=== PATIENT | male | born 1985 | race Caucasian/White ===

== ENCOUNTER 2020-01-08 12:22 | Outpatient (CLI) | payer BC, SELFPAY ==
--- NOTE | ~2020-01-08 | CT_ITS ---
EXAMINATION: CT abdomen pelvis wo/w con DATE: 01/08/2020 13:08 INDICATION: Hydronephrosis. Right upper quadrant abdominal pain. TECHNIQUE: Computed tomography (CT) of the abdomen and pelvis was performed without intravenous contr ast. CT of the abdomen and pelvis was then performed with a total of 130 mL Omnipaque-350 intravenous contrast using a double-bolus technique for simultaneous opacification of the renal parenchyma and r enal collecting system. Automated exposure control and iterative reconstruction technique were employ ed. The dose-length product was 2579.14 mGy-cm. COMPARISON: None FINDINGS: Minimal atelectasis at the lingula and right middle lobe. Heart size is normal. No pericardial or ple ural effusion. Liver, gallbladder, spleen and adjacent splenule, pancreas and bilateral adrenal gland s are normal. Bowels including the appendix are normal. No free intraperitoneal gas or fluid. No path ologically enlarged abdominal or pelvic lymphadenopathy. The knees are normal and symmetric renal parenchymal enhancement. No urolithiasis, hydroureteronephro sis or perinephric/ureteral stranding. The bilateral renal collecting systems and ureters are opacifi ed in their entirety and demonstrate no urothelial irregularities or filling defects. Bilateral urete ral jets are visualized within the normal-appearing bladder. Bone island at the right pubic body. Mil d lower thoracic spondylosis. IMPRESSION: 1. Normal CT urogram with normal kidneys and ureters and no urolithiasis or hydronephrosis. Reviewed, dictated and finalized at location A. UNITY DIRECTOR IMPRESSION: 1. Normal CT urogram with normal kidneys and ureters and no urolithiasis or hyd ronephrosis.
[2020-01-08 12:52] LABS: Estimated Glomerular Filt Rate > 60
== END 2020-01-08 12:23 ==
PROVIDERS: PCP Physician Assistant; Visit Provider Physician Assistant
DX: N13.30 Unspecified hydronephrosis (principal)
CPT/HCPCS: 36415; 74178; Q9967

== ENCOUNTER 2023-04-12 12:16 | Outpatient (CLI) | payer BC, SELFPAY ==
[2023-04-12 13:57] LABS: CRP 1.4 mg/dL (<1.0)
[2023-04-12 14:00] LABS: Erythrocyte Sedimentation Rate 11 mm/hr (0-20)
== END 2023-04-12 12:17 | disposition home or self-care (01) ==
LOC: ANHLAB 12:17
PROVIDERS: PCP Physician Assistant; Visit Provider Nurse Practitioner
DX: R10.9 Unspecified abdominal pain (principal); K52.9 Noninfective gastroenteritis and colitis, unspecified; K92.1 Melena; K21.9 Gastro-esophageal reflux disease without esophagitis
CPT/HCPCS: 36415; 84443; 85652; 86140

== ENCOUNTER 2023-04-28 01:08 | Day surgery (SDC) | payer BC, SELFPAY ==
[2023-04-20 08:23] VITALS: BMI 35.6
--- NOTE | 2023-04-27 12:29 | P.PNAN_ITS ---
Anes - Initial Pre Proc Eval Procedure: Operation Date: 04/28/23 14:00 Proposed Procedures p Esophagogastroduodenoscopy & Colonoscopy - Tej Peck MD Date/Time: 04/27/23 12:29 Surgeon: Tej Peck MD Pre Op Diagnosis: other fecal abnormalities, abdominal pain, GERD, Patient Data Age: 37 Gender: M Height: 1.85 m Weight: 122.5 kg Allergies Allergy/AdvReac Type Severity Reaction Status Date / Time No Known Allergies Allergy Verified 04/28/23 13:11 Home Medications Medication Instructions Recorded Confirmed Type albuterol sulfate 90 mcg/actuation 1 puff inhalation Q4H PRN 04/12/23 04/20/23 History aerosol inhaler Shortness Of Breath amlodipine 5 mg tablet 5 mg PO DAILY 04/12/23 04/20/23 History atorvastatin 40 mg tablet (Lipitor) 40 mg PO DAILY 04/12/23 04/20/23 History colestipol 1 gram tablet 1 g PO BID #60 tabs 04/12/23 04/20/23 Rx escitalopram oxalate 10 mg tablet 10 mg PO DAILY 04/12/23 04/20/23 History (Lexapro) fluticasone propionate 44 1 inh inhalation ONCE 04/12/23 04/20/23 History mcg/actuation HFA aerosol inhaler losartan 100 mg tablet 100 mg PO DAILY 04/12/23 04/20/23 History omeprazole 40 mg capsule,delayed 40 mg PO DAILY 04/12/23 04/20/23 History release Patient hx anesthesia problems: none Family hx anesthesia problems: none Results Review: All pre-operative results and documents have been reviewed as part of the pre- operative evaluation. [facility] Past Medical History Medical History (Updated 04/27/23 @ 12:30 by Boogie Salgado DO) Abdominal pain Chronic diarrhea GERD (gastroesophageal reflux disease) Increased mucus in stool Melena Obesity Odynophagia PTSD (post-traumatic stress disorder) Tobacco use Wheezing on both sides of chest Surgical History Surgical History (Updated 04/12/23 @ 12:48 by Maddy Marinelli APRN) History of cholecystectomy Family History Family History (Updated 04/12/23 @ 11:50 by Tomeka Mccord MA) Father Hypertension Mother Hypertension Social History Social History (Updated 04/12/23 @ 11:51 by Tomeka Mccord MA) Smoking packs per day: 1 Smoking cigarettes per day: 20.0 Years smoked: 21 Smoking pack-years: 21.00 Smoking status: Current every day smoker Tobacco type: cigarettes and e-cigarettes/vaping Alcohol intake: never Substance use: never Substance use type: does not use Living arrangements: with family Occupation/Education: occupation Gender identity (if verbalized by the patient): Male Spiritual care concerns: No Anes - Eval Final PreProcedure Day of Procedure 04/27/23 12:29 Patient weight: obese Heart: regular rate and rhythm Lungs: clear to auscultation Airway: Mallampati scale class II Neurological: alert and oriented Last oral intake: >/= 8 hours ASA classification: III Emergent: no Anesthetic plan: proceed Anesthesia type and monitoring: general GIVS and standard monitoring Results Review: All pre-operative results and documents have been reviewed as part of the pre- operative evaluation. Informed Consent: The patient's anesthetic plan and its attendant risks and benefits were discussed with the patient/family/POA. Questions were solicited and answers provided to the satisfaction of the patient/family
--- NOTE | 2023-04-27 20:05 | PM.HPGS ---
History of Present Illness History of Present Illness Consent: Risks, benefits, and alternatives have been discussed and questions answered. Patient agrees to proceed with procedure. Chief complaint: other fecal abnormalities, abdominal pain, GERD, Narrative: Leo Monge is a 37 year old male who ?has a past medical history of cholecystectomy, GERD and hypertension.? He is a daily smoker.? He has gallbladder removed 2 years ago and since then he has been having 6-7 episodes of watery diarrhea per day not associated with any specific foods.? He states that for several years he has been having a dull constant abdominal discomfort above his umbilicus.? it is constant and more uncomfortable if he presses on the area. It is not affected by eating. This is not a correlated with eating or bowel habits.? He states he had melena a couple weeks ago and states that they were to tarry which has no resolved-denies Pepto or iron when this occurred.? He does also states since he had his gallbladder out he deals with a lot of nausea and vomits ileus 1 times per week typically in the morning hours prior to eating and states it is bile acid.? He has a chronic cough but does smoke.? He reports some painful swallowing his suprasternal notch and some dysphagia.? Has not tried any medications for the diarrhea.? Has been on omeprazole 40 mg for several years Review of Systems Review of Systems: All systems reviewed & are unremarkable except as noted in HPI and below PMFSH Past Medical History Medical History Abdominal pain Chronic diarrhea GERD (gastroesophageal reflux disease) Increased mucus in stool Melena Obesity Odynophagia PTSD (post-traumatic stress disorder) Tobacco use Wheezing on both sides of chest Surgical History Surgical History History of cholecystectomy Family History Family History Father Hypertension Mother Hypertension Social History Social History Smoking packs per day: 1 Smoking cigarettes per day: 20.0 Years smoked: 21 Smoking pack-years: 21.00 Smoking status: Current every day smoker Tobacco type: cigarettes and e-cigarettes/vaping Alcohol intake: never Substance use: never Substance use type: does not use Living arrangements: with family Occupation/Education: occupation Gender identity (if verbalized by the patient): Male Spiritual care concerns: No Meds Home Medications and Allergies Home Medications Medication Instructions Recorded Confirmed Type albuterol sulfate 90 mcg/actuation 1 puff inhalation Q4H PRN 04/12/23 04/20/23 History aerosol inhaler Shortness Of Breath amlodipine 5 mg tablet 5 mg PO DAILY 04/12/23 04/20/23 History atorvastatin 40 mg tablet (Lipitor) 40 mg PO DAILY 04/12/23 04/20/23 History colestipol 1 gram tablet 1 g PO BID #60 tabs 04/12/23 04/20/23 Rx escitalopram oxalate 10 mg tablet 10 mg PO DAILY 04/12/23 04/20/23 History (Lexapro) fluticasone propionate 44 1 inh inhalation ONCE 04/12/23 04/20/23 History mcg/actuation HFA aerosol inhaler losartan 100 mg tablet 100 mg PO DAILY 04/12/23 04/20/23 History omeprazole 40 mg capsule,delayed 40 mg PO DAILY 04/12/23 04/20/23 History release Allergies Allergy/AdvReac Type Severity Reaction Status Date / Time No Known Allergies Allergy Verified 04/28/23 13:11 Exam Const: General: alert Orientation/consciousness: patient oriented x3 Resp: Auscultation: clear to auscultation bilaterally Cardio: Rhythm: regular rhythm GI: GI Palp: Yes Soft to palpation and No Tenderness to palpation present (GI) Neuro: General: patient oriented x3 Assessment and Plan Assessment and plan (1) Abdominal pain: Code(s): R10.9 - Unspecified abdominal pain Status: Acute
[2023-04-28 13:13] VITALS: BP 158/101; PULSE 80; RESP 20; TEMP 36.6; O2SAT 97; BMI 35.4
[2023-04-28] MEDS: LACTATED RINGERS 1,000 ML 150 ML IV CONT (13:21)
--- NOTE | 2023-04-28 13:50 | SUR.OPER ---
EGD start 1355 end 1359, Colonoscopy start 1403
[2023-04-28 14:20] VITALS: BP 112/67; PULSE 64; RESP 15; O2SAT 95
[2023-04-28 14:30] VITALS: BP 122/75; PULSE 62; RESP 16; O2SAT 94
[2023-04-28 14:40] VITALS: BP 142/88; PULSE 53; RESP 15; O2SAT 96
[2023-04-28 14:50] VITALS: BP 140/75; PULSE 70; RESP 16; O2SAT 100
== END 2023-04-28 15:08 | disposition home or self-care (01) ==
PROVIDERS: PCP Physician Assistant; Visit Provider Internal Medicine Gastroenterology
PROC: 0DJ08ZZ Inspection of Upper Intestinal Tract, Via Natural or Artificial Opening Endoscopic (ICD-10-PCS; CPT 43235; principal; 2023-04-28 14:00)
DX: R19.5 Other fecal abnormalities (principal); R10.9 Unspecified abdominal pain; K52.9 Noninfective gastroenteritis and colitis, unspecified; K21.9 Gastro-esophageal reflux disease without esophagitis; F17.210 Nicotine dependence, cigarettes, uncomplicated; F17.290 Nicotine dependence, other tobacco product, uncomplicated
CPT/HCPCS: 45378; 87081; 88305; J2704; J7120

== ENCOUNTER 2023-07-07 07:30 | Outpatient (CLI) | payer BC, SELFPAY ==
--- NOTE | ~2023-07-07 | NM_ITS ---
EXAM: NM gastric emptying study DATE: 07/07/2023 12:10 INDICATION: Epigastric pain, nausea and vomiting, early satiety TECHNIQUE: A gastric emptying study was performed using the methodology of Addison LUGO, et al. J Nucl Med 2007; 48:568-572. The patient was given a meal consisting of 2 scrambled eggs labeled with 1.029 mCi Tc-99m sulfur colloid, 2 slices of toast, two packages of jam, and approximately 120 mL of water . Simultaneous anterior and posterior 1-min images of the abdomen were obtained with the patient supi ne at multiple time points over a total period of 4 hours. The geometric mean of anterior and posteri or views was determined, and the percentage retention was calculated for each time point. COMPARISON: None. FINDINGS: Gastric retention of the radiotracer-labeled meal was 46%, 26%, and 5% at the 1-hour, 2-hour, and 4-h our time points, respectively. With this technique, apparent rapid gastric emptying is suggested by < 30% gastric retention at 1 hour. Delayed gastric emptying is defined by gastric retention of >90% at 1 hour, >60% retention at 2 hours, or >10% retention at 4 hours. IMPRESSION: 1. Normal gastric emptying. Reviewed, dictated and finalized at location A. IMPRESSION: 1. Normal gastric emptying.
== END 2023-07-07 07:31 | disposition home or self-care (01) ==
LOC: ANHIMG 07:33
PROVIDERS: PCP Physician Assistant; Visit Provider Nurse Practitioner
DX: R63.0 Anorexia (principal); R68.81 Early satiety; R11.2 Nausea with vomiting, unspecified; K21.9 Gastro-esophageal reflux disease without esophagitis; R10.9 Unspecified abdominal pain
CPT/HCPCS: 78264; A9541

== ENCOUNTER 2024-04-22 09:28 | Emergency (ER) | payer SELFPAY ==
--- NOTE | ~2024-04-22 | XR_ITS ---
EXAMINATION: XR wrist LT min 3V DATE: 04/22/2024 09:56 INDICATION: Left wrist pain and swelling. TECHNIQUE: 4 views of left wrist were obtained. COMPARISON: None. FINDINGS: Bone alignment is normal. No fracture. Joint spaces are normal. IMPRESSION: 1. Normal left wrist. Reviewed, dictated and finalized at location E. IMPRESSION: 1. Normal left wrist.
[2024-04-22 09:31] VITALS: BP 172/112; PULSE 92; RESP 18; TEMP 36.6; O2SAT 98
--- NOTE | 2024-04-22 09:38 | ED.UPPEXIN ---
HPI - Extremity Injury (Upper) General Chief Complaint: Extremity Injury, Upper Stated Complaint: left wrist pain , no injury Time Seen by Provider: 04/22/24 09:31 Source: patient Mode of arrival: ambulatory Limitations: no limitations History of Present Illness HPI narrative: Patient is a 38-year-old male who presents the ED with report of left wrist pain. Patient reports having pain for the last 3 weeks to 1 month. Denies any known injury. Does work with his hands frequently. Complains of pain around his wrist, shooting up his forearm. 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 Has not tried anything for pain. Denies numbness or tingling, swelling. Related Data Home Medications Medication Instructions Recorded Confirmed albuterol sulfate 90 mcg/actuation 1 puff inhalation Q4H PRN 04/12/23 04/20/23 aerosol inhaler Shortness Of Breath amlodipine 5 mg tablet 5 mg PO DAILY 04/12/23 04/20/23 atorvastatin 40 mg tablet (Lipitor) 40 mg PO DAILY 04/12/23 04/20/23 escitalopram oxalate 10 mg tablet 10 mg PO DAILY 04/12/23 04/20/23 (Lexapro) fluticasone propionate 44 1 inh inhalation ONCE 04/12/23 04/20/23 mcg/actuation HFA aerosol inhaler losartan 100 mg tablet 100 mg PO DAILY 04/12/23 04/20/23 omeprazole 40 mg capsule,delayed 40 mg PO DAILY 04/12/23 04/20/23 release Allergies Allergy/AdvReac Type Severity Reaction Status Date / Time No Known Allergies Allergy Verified 04/22/24 09:55 Review of Systems Review of Systems: CONSTITUTIONAL: Denies fever, chills, or sweats. MUSCULOSKELETAL: See HPI. NEUROLOGIC: Denies headache, dizziness, numbness, or weakness. All systems reviewed & are unremarkable except as noted in HPI and below PMFSH Past Medical History Medical History Abdominal pain Chronic diarrhea Decreased appetite Early satiety GERD (gastroesophageal reflux disease) Increased mucus in stool Melena Nausea & vomiting Obesity Odynophagia PTSD (post-traumatic stress disorder) Tobacco use Wheezing on both sides of chest Surgical History Surgical History History of cholecystectomy Family History Family History Father Hypertension Mother Hypertension Social History Social History Smoking packs per day: 1 Smoking cigarettes per day: 20.0 Years smoked: 21 Smoking pack-years: 21.00 Smoking status: Current every day smoker Tobacco type: cigarettes and e-cigarettes/vaping Alcohol intake: never Substance use: never Substance use type: does not use Living arrangements: with family Occupation/Education: occupation Gender identity (if verbalized by the patient): Male Spiritual care concerns: No Exam Narrative: GENERAL: Well appearing, obese with BMI of 35.5, non-toxic, in no acute distress. HEAD: Normocephalic, atraumatic. RESPIRATORY: Airway patent, respirations nonlabored. CARDIOVASCULAR: Regular rate and rhythm without murmurs, rubs, or gallops. Radial pulses strong and intact bilaterally. MUSCULOSKELETAL: Moves all extremities. No gross deformities. Mild limited range of motion of left wrist. Tenderness over distal ulna region on the volar aspect of left wrist. Positive carpal compression testing with reproduction of pain. Positive Tinel's with reproduction of pain. Sensation intact throughout fingers and forearm. Capillary refill intact. SKIN: Warm, dry, normal color. NEURO: A&O X3. Speech clear. PSYCHIATRIC: Appropriate mood and affect. Normal interaction. Course Vital Signs Vital signs: Vital Signs Temperature 97.8 F 04/22/24 09:31 Pulse Rate 92 04/22/24 09:31 Respiratory Rate 18 04/22/24 09:31 Blood Pressure 172/112 H 04/22/24 09:31 Pulse Oximetry 98 04/22/24 09:31
[2024-04-22] MEDS: KETOROLAC (*BKC) 60 MG/2 ML VIAL IM (09:56)
[2024-04-22 10:11] VITALS: BP 175/106; PULSE 81; RESP 18; O2SAT 97
== END 2024-04-22 10:12 | disposition home or self-care (01) ==
LOC: ANHED 10:08
PROVIDERS: Emergency Provider Physician Assistant; PCP Physician Assistant
DX: M25.532 Pain in left wrist (principal); F17.210 Nicotine dependence, cigarettes, uncomplicated; K21.9 Gastro-esophageal reflux disease without esophagitis; F43.10 Post-traumatic stress disorder, unspecified
CPT/HCPCS: 73110; 96372; 99283; J1885

== ENCOUNTER 2025-05-19 14:22 | Emergency (ER) | payer OTHER, SELFPAY ==
[2025-05-19 14:23] VITALS: BP 187/127; PULSE 92; RESP 20; TEMP 36.6; O2SAT 96
--- OUTSIDE RECORDS SUMMARY | 2025-05-19 14:28 | XMS_ITS | Encounter Summary ---
Author Organization [facility] - [facility] Address [address] [place] [address] Care Team Providers Care Tugboat Dispatcher Name Role Phone Mari English NP Primary Care Provider + [phone] Encounter Details Date Type Department Care Team (Late st Contact Info) Description 05/03/2023 The [employer] Message Enc [facility] - [facility] [address] [place], [place] [id number] Charlee, [facility] Provider Air Quality Message Social History Tobacco Use Types Packs/Day Years Used Date Smoking Tobacco: Every Day Cigarettes 1.5 22 Smokeless Tobacco: Former Chew Comments:Wants to quit. 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 Alcohol Use Standard Drinks/Week Comments Yes 0 (1 standard drink = 0.6 oz pur e alcohol) rare use- beer on occasion AUDIT-C Answer Date Recorded Frequency of Alcohol Consumption Never 04/22/2019 Average Number of Drinks Not on file 019 Frequency of Binge Drinking Not on file 04/06 PHQ-2 Answer Date Recorded Patient Health Questionnaire-2 Score 4 03/15/2023 Education Answer Date Recorded What is the highest level of school you have completed or the highest degree you have received? High school graduate 12/10/2019 Sex and Gender Information Value Date Recorded Sex Assigned at Male 01/20/2020 2:12 PM CDT Legal Sex Male 7:09 PM CDT Gender Identity Male 01/20/2020 2:12 PM CDT Sexual Orientation Straight 01/20/2020 2: 12 PM CDT documented as of this encounter Plan of Treatment Not on file documented as of this encounter Visit Diagnoses Not on filedocumented in this encounter Additional Health Concerns Assessment Noted Time PHQ-9 Depression Total Score: 14 023 9:47 AM CDT documented as of this encounter Care Teams Tugboat Dispatcher Relationship Specialty [place] [address] [address] [id number] PCP - General Nurse Practitioner Family 03/21/23 documented as of this encounter
--- OUTSIDE RECORDS SUMMARY | 2025-05-19 14:29 | XMS_ITS | Encounter Summary ---
Author Organization [facility] Address [facility] [place] [address] Care Team Providers Care News Production Supervisor Name Role Phone Kecia GoodwinNP Primary Care Provider [phone] Mari English NP Primary Care Provider + [phone] Encounter Details Date Type Department Care Team (Late st Contact Info) Description 06/07/2022 [place] Message [facility] Family & Internal Medicine [address] [id number] [employer], [facility] Provider Lab results Social History Tobacco Use Types Packs/Day Years Used Date Smoking Tobacco: Every Day Cigarettes 1.5 22 Smokeless Tobacco: Former Chew Comments:advised to stop Alcohol Use Standard Drinks/Week Comments Yes 0 (1 standard drink = 0.6 oz pur e alcohol) rare use- beer on occasion AUDIT-C Answer Date Recorded Frequency of Alcohol Consumption Never 04/22/2019 Average Number of Drinks Not on file 019 Frequency of Binge Drinking Not on file 04/06 PHQ-2 Answer Date Recorded PHQ-2 Score - If the patient scores above 3, please move on to questions 3-9 4 01/20/2022 Education Answer Date Recorded What is the highest level of school you have completed or the highest degree you have received? High school graduate 12/10/2019 Sex and Gender Information Value Date Recorded Sex Assigned at Male 01/20/2020 2:12 PM CDT Legal Sex Male 7:09 PM CDT Gender Identity Male 01/20/2020 2:12 PM CDT Sexual Orientation Straight 01/20/2020 2: 12 PM CDT COVID-19 Exposure Response Date Recorded In the last 10 days, have scott u been in contact with someone who was confirmed or suspected to have Coronavirus/COVID-19? No / Unsure 06/06/2022 9:19 AM CDT documented as of this encounter Plan of Treatment Not on file documented as of this encounter Visit Diagnoses Not on filedocumented in this encounter Additional Health Concerns Assessment Noted Time PHQ-9 Depression Total Score: 13 022 10:18 AM CDT documented as of this encounter Care Teams News Production Supervisor Relationship Specialty Start Date End Date Kecia Goodwin APNP [id number] [phone] PCP - General Nurse Practitioner Family [birth year]03/06 [place] [address] [facility] [address] [facility] [place] [address] PCP - General Nurse Practitioner Family 03/21/23 documented as of this encounter
--- OUTSIDE RECORDS SUMMARY | 2025-05-19 14:29 | XMS_ITS | Clinical Summary ---
Author Organization [facility] Address [address] [place] [address] Care Team Providers Care Carbon Printer Name Role Phone Mari English NP Primary Care Provider + [phone] Allergies No known active allergies Medications Eluxadoline (VIBERZI) 75 MG TabIndications:Ir ritable bowel syndrome with diarrhea Take 1 tablet by mouth every morning. 30 tablet 2 3 Active escitalopram (LEXAPRO) 10 MG tabletIndications :Anxiety and depression Take 1 tablet (10 mg total) by mouth daily. 90 tablet 3 3 Active atorvastatin (LIPITOR) 40 MG tabletIndications :Hypercholesterem ia Take 1 tablet (40 mg total) by mouth nightly at bedtime. 90 tablet 3 3 Active albuterol sulfate HFA 108 (90 Base) MCG/ACT inhalerIndication s:Mild intermittent asthma without complication (HHS/HCC) Inhale 1 puff into the lungs every 6 (six) hours as needed for Wheezing. 25.5 g 5 3 Active fluticasone propionate (FLOVENT HFA) 44 MCG/ACT inhalerIndication s:Mild intermittent asthma without complication (HHS/HCC) Inhale 1 puff into the lungs 2 (two) times daily. 10.6 g 5 3 Active losartan (COZAAR) 100 MG tabletIndications :Essential hypertension Take 1 tablet (100 mg total) by mouth daily. 90 tablet 3 3 Active omeprazole (PRILOSEC) 40 MG capsuleIndication s:Gastroesophagea l reflux disease without esophagitis Take 1 capsule (40 mg total) by mouth daily. 15 capsule 3 Active amLODIPine (NORVASC) 5 MG tabletIndications :Essential hypertension Take 1 tablet (5 mg total) by mouth nightly. 30 tablet 3 Active Active Problems Problem Noted Date Diagnosed Date Mild intermittent asthma without complication (H HS/HCC) 03/23/2023 Vitamin D deficiency 03/23/2023 Chronic diarrhea 03/23/2023 Irritable bowel syndrome with diarrhea 3 Moderate anxiety 03/15/2023 Moderate major depression 03/15/2023 Obesity (BMI 30-39.9) 03/15/2023 Cigarette nicotine dependenc e with other nicotine-induced disorder 03/15/2023 Anxiety and depression 06/08/2021 Status post laparoscopic cholecystectomy 020 Symptomatic cholelithiasis 01/10/2020 Heartburn 01/10/2020 Gastroesophageal reflux disease without esophagi tis 01/10/2020 Right upper quadrant abdominal pain 01/10/2020 Nausea and vomiting, intract ability of vomiting not specified, unspecified vomiting type 01/10/2020 Diarrhea, unspecified type 01/10/2020 Hypercholesteremia 05/07/2019 Essential hypertension 04/22/2019 Wheezing 04/22/2019 Current every day smoker 04/22/2019 Loud snoring 04/22/2019 Resolved Problems Problem Noted Date Diagnosed Date Resolved Date Encounter for [facility] examination in adult 04/22/2019 07/17/2020 Immunizations Immunization Administration Dates Next Due COVID-19 Vaccine (Generic) 06/03/2022(Deferred: Patient Refused) Influenza (Generic) 01/20/2022(Deferred: Patient Refused),08/18/2020 Tdap (Generic) 12/02/2013 Family History Medical History Relation Comments motor vehicle accident Father drinking and driving Heart Disease Mother Relation Status Comments Father Mother Social History Tobacco Use Types Packs/Day Years Used Date Smoking Tobacco: Every Day Cigarettes 1.5 22 Smokeless Tobacco: Former Chew Tobacco Cessation:Ready to Q uit: Not Asked; Counseling Given: Yes Comments:Wants to quit. Please children counselor. Alcohol Use Standard Drinks/Week Comments Yes [...] Orientation Straight 01/20/2020 2: 12 PM CDT Last Filed Vital Signs Vital Sign Reading Time Taken Comments Blood Pressure 139/89 05/31/2023 12:31 PM CDT Pulse 69 05/31/2023 12:31 PM CDT Temperature 36.7 C (98 F) 05/31/2023 12:31 PM CDT Respiratory Rate 18 05/31/2023 12:31 PM CDT Oxygen Saturation 97% 05/31/2023 12:31 PM CDT Inhaled Oxygen Concentration - - Weight 127 kg (280 lb) 05/31/2023 9:22 AM CDT Height 185.4 cm (6' 1) 05/31/2023 9:22 AM CDT Body Mass Index 36.94 05/31/2023 9:22 AM CDT Plan of Treatment Health Maintenance Due Date Last Done Comments Hepatitis B Vaccines (1 of 3 - 19+ 3-dose series) 2005 Pneumococcal Vaccine: Pediat rics (0 to 5 Years) and At-Risk Patients (6 to 49 Years) (1 of 2 - PCV) 2005 Annual Physical 10/07/2021 10/07/2020 DTaP, Tdap and Td Vaccines ( 2 - Td or Tdap) 12/02/2023 12/02/2013 COVID-19 Vaccine ( - 2023-2 5 season) 2024 PHQ-2 (Physician [place]) 11/06/2024 Hepatitis C 06/03/2052 Postponed from 2004 (Patient Refused) HPV Vaccines Aged Out No longer eligi ble based on patient's age to complete this topic Meningococcal B Vaccine Aged Out No l onger eligible based on patient's age to complete this topic Meningococcal Vaccine Aged Out No jose mingo eligible based on patient's age to complete this topic RSV Immunizations Under 20 Months Aged Out No longer eligible based on patient's age to complete this topic Insurance [facility] Care Teams Carbon Printer Relationship Specialty [place] [address] [facility] [address] [place] [id number] PCP - General Nurse Practitioner Family 03/21/23
--- OUTSIDE RECORDS SUMMARY | 2025-05-19 14:29 | XMS_ITS | Encounter Summary ---
Author Organization [facility] Address [facility] [place] [address] Care Team Providers Care Stock Driver Name Role Phone Kecia Goodwin Primary Care Provider [phone] Mari English NP Primary Care Provider [phone] Encounter Details Date Type Department Care Team (Late st Contact Info) Description 01/20/2022 [employer] Message Enc [facility] Medical Group Family & Internal Medicine [facility] [address] [place] [address] Kecia Goodwin APNP [address] [address] Question regarding CBC W/DIFF AUTOMATED Social History Tobacco Use Types Packs/Day Years [...] Recorded In the last 10 days, have yo u been in contact with someone who was confirmed or suspected to have Coronavirus/COVID-19? No / Unsure 01/20/2022 7:17 AM CDT documented as of this encounter Progress Notes * Kelsi Olivera RN - 01/21/2022 8:50 AM CDT See result note. Will need to call patient. * MERRY Mills - 01/21/2022 7:52 AM CDT See other task. documented in this encounter Plan of Treatment Not on file documented as of this encounter Visit Diagnoses Not on filedocumented in this encounter Additional Health Concerns Assessment Noted Time PHQ-9 Depression Total Score: 13 022 10:18 AM CDT documented as of this encounter Care Teams Stock Driver Relationship Specialty Start Date End Date Kecia Goodwin APNP [address] [address] PCP - General Nurse Practitioner Family 04/22/1902/06 [place] [address] [address] [place], [place] [phone] PCP - General Nurse Practitioner Family 03/21/23 documented as of this encounter
--- OUTSIDE RECORDS SUMMARY | 2025-05-19 14:29 | XMS_ITS | Encounter Summary ---
Author Organization [facility] Address [facility] [place] [address] Care Team Providers Care Access Control Specialist Name Role Phone Kecia GoodwinNP Primary Care Provider [phone] Mari English NP Primary Care Provider + [phone] Encounter Details Date Type Department Care Team (Late st Contact Info) Description 03/23/2020 [employer] Message Enc [facility] Medical Group Family & Internal Medicine [address] [address] [employer], [facility] Provider Appointment Social History Tobacco Use Types Packs/Day Years Used Date Smoking Tobacco: Every Day Cigarettes 1 22 Smokeless Tobacco: Former Alcohol Use Standard Drinks/Week Comments No 0 (1 standard drink = 0.6 oz pur e alcohol) AUDIT-C Answer Date Recorded Frequency of Alcohol Consumption Never 04/22/2019 Average Number of Drinks Not on file 019 Frequency of Binge Drinking Not on file 04/06 Education Answer Date Recorded What is the [...] Exposure Response Date Recorded In the last month, have you been in contact with someone who was confirmed or suspected to have Coronavirus / COVID-19? No / Unsure 02/27/2020 4:13 PM CDT documented as of this encounter Plan of Treatment Not on file documented as of this encounter Visit Diagnoses Not on filedocumented in this encounter Care Teams Access Control Specialist Relationship Specialty Start Date End Date Kecia Goodwin APNP [address] [address] PCP - General Nurse Practitioner Family 04/22/1902/06 [place] [address] [facility] [address] [place] [address] PCP - General Nurse Practitioner Family 03/21/23 documented as of this encounter
--- OUTSIDE RECORDS SUMMARY | 2025-05-19 14:29 | XMS_ITS | Encounter Summary ---
Author Organization [facility] Address [facility] [place] [address] Care Team Providers Care Overhead Irrigator Name Role Phone Kecia Goodwin Primary Care Provider [phone] Mari English NP Primary Care Provider + [phone] Encounter Details Date Type Department Care Team (Late st Contact Info) Description 07/28/2020 [employer] Message Enc [facility] Medical Group Family & Internal Medicine [address] [address] [place], [facility] Provider Omeprazole Social History Tobacco Use Types Packs/Day Years [...] on filedocumented in this encounter Care Teams Overhead Irrigator Relationship Specialty Start Date End Date Kecia Goodwin APNP [address] [address] PCP - General Nurse Practitioner Family 04/22/1902/06 [place] [address] [address] [address]. [place] [address] PCP - General Nurse Practitioner Family 03/21/23 documented as of this encounter
--- OUTSIDE RECORDS SUMMARY | 2025-05-19 14:29 | XMS_ITS | Encounter Summary ---
Author Organization [facility] Address [facility]6 [place] [address] Care Team Providers Care Sports Specialist Name Role Phone Kecia GoodwinNP Primary Care Provider [phone] Mari English NP Primary Care Provider + [phone] Encounter Details Date Type Department Care Team (Late st Contact Info) Description 06/01/2022 [employer] Message [employer] [facility] Medical Group Family & Internal Medicine [facility] [phone] [place] [address] [employer], [facility] Provider Bllod pressure Social History Tobacco Use Types Packs/Day Years [...] suspected to have Coronavirus/COVID-19? No / Unsure 06/03/2022 12:51 PM CDT documented as of this encounter Plan of Treatment Not on file documented as of this encounter Visit Diagnoses Not on filedocumented in this encounter Additional Health Concerns Assessment Noted Time PHQ-9 Depression Total Score: 13 022 10:18 AM CDT documented as of this encounter Care Teams Sports Specialist Relationship Specialty Start Date End Date Kecia Goodwin APNP [address] [phone] PCP - General Nurse Practitioner Family 04/22/1902/06 [place] [address] [facility] [address] [facility]. [place], [place] [id number] PCP - General Nurse Practitioner Family 03/21/23 documented as of this encounter
--- OUTSIDE RECORDS SUMMARY | 2025-05-19 14:29 | XMS_ITS | Encounter Summary ---
Author Organization [facility] Address [facility] [place] [address] Care Team Providers Care Stud Dairy Cattle Farmer Name Role Phone Kecia GoodwinNP Primary Care Provider [phone] Mari English NP Primary Care Provider + [phone] Encounter Details Date Type Department Care Team (Late st Contact Info) Description 01/21/2022 Outcome Referrals Message [employer] [facility] Medical Group Family & Internal Medicine [address] [address] [employer], [facility] Provider Results Social History Tobacco Use Types Packs/Day Years [...] documented as of this encounter Care Teams Stud Dairy Cattle Farmer Relationship Specialty Start Date End Date Kecia Goodwin APNP [address] [phone] PCP - General Nurse Practitioner Family 04/22/1902/06 [place] [address] [facility] [address] [place] [address] PCP - General Nurse Practitioner Family 03/21/23 documented as of this encounter
--- OUTSIDE RECORDS SUMMARY | 2025-05-19 14:29 | XMS_ITS | Encounter Summary ---
Author Organization [facility] Address [facility] [place] [address] Care Team Providers Care Radiator Core Tester Name Role Phone Kecia GoodwinNP Primary Care Provider [phone] Mari English NP Primary Care Provider + [phone] Encounter Details Date Type Department Care Team (Late st Contact Info) Description 06/14/2022 [employer] Message Enc [facility] Medical Group Family & Internal Medicine [address] [address] [employer], [facility] Provider Losartan medication Social History Tobacco Use Types Packs/Day Years [...] documented as of this encounter Care Teams Radiator Core Tester Relationship Specialty Start Date End Date Kecia Goodwin APNP [address] [phone] PCP - General Nurse Practitioner Family [birth year]03/06 [place] [address] [facility] [address] [facility] [place] [address] PCP - General Nurse Practitioner Family 03/21/23 documented as of this encounter
--- NOTE | 2025-05-19 15:26 | ED.SKABFB ---
HPI - Skin/Abscess/Foreign Bdy General Chief complaint: Skin/Abscess/Foreign Body Stated complaint: left breast infection Time Seen by Provider: 05/19/25 14:41 History of Present Illness HPI narrative: A few days ago patient noticed an area of redness and tenderness on his left breast, he has never had this happen in the past. No systemic symptoms, fevers or chills or weight loss, no recent injury she Related Data Home Medications ?Medication ?Instructions ?Recorded ?Confirmed ?Last Taken ?Type albuterol sulfate 90 mcg/actuation 1 puff inhalation Q4H PRN 04/12/23 04/20/23 04/27/23 History aerosol inhaler Shortness Of Breath amlodipine 5 mg tablet 5 mg PO DAILY 04/12/23 04/20/23 04/27/23 History atorvastatin 40 mg tablet (Lipitor) 40 mg PO DAILY 04/12/23 04/20/23 04/27/23 History escitalopram oxalate 10 mg tablet 10 mg PO DAILY 04/12/23 04/20/23 04/27/23 History (Lexapro) fluticasone propionate 44 1 inh inhalation ONCE 04/12/23 04/20/23 04/27/23 History mcg/actuation HFA aerosol inhaler losartan 100 mg tablet 100 mg PO DAILY 04/12/23 04/20/23 04/27/23 History omeprazole 40 mg capsule,delayed 40 mg PO DAILY 04/12/23 04/20/23 04/27/23 History release Allergies Allergy/AdvReac Type Severity Reaction Status Date / Time No Known Allergies Allergy Verified 05/19/25 14:26 Review of Systems Review of Systems: All systems reviewed & are unremarkable except as noted in HPI and below PMFSH Past Medical History Medical History Abdominal pain Chronic diarrhea Decreased appetite Early satiety GERD (gastroesophageal reflux disease) Increased mucus in stool Melena Nausea & vomiting Obesity Odynophagia PTSD (post-traumatic stress disorder) Tobacco use Wheezing on both sides of chest Surgical History Surgical History History of cholecystectomy Family History Family History Father Hypertension Mother Hypertension Social History Social History Smoking packs per day: 1 Smoking cigarettes per day: 20.0 Years smoked: 21 Smoking pack-years: 21.00 Smoking status: Current every day smoker Tobacco type: cigarettes and e-cigarettes/vaping Alcohol intake: never Substance use: never Substance use type: does not use Living arrangements: with family Occupation/Education: occupation Gender identity (if verbalized by the patient): Male Spiritual care concerns: No Exam Narrative: EXAMINATION OF ORGAN SYSTEMS/BODY AREAS: Constitutional: Vital signs per nursing GENERAL:[No acute distress, non-toxic appearing.] HEAD: Normal with no signs of head trauma. EYES: EOMI, conjunctiva normal ENT: Hearing grossly intact LUNGS: Nonlabored breathing. HEART: [Regular rate and rhythm] ABD: [Soft], [nontender to palpation] EXT: Normal range of motion SKIN: 4cm area of redness and induration below L nipple; no fluctuance NEURO: [Alert and oriented x 3. No gross focal sensory or strength deficits.] PSYCH: Normal affect Course Vital Signs Vital signs: Vital Signs Temperature 97.8 F 05/19/25 14:23 Pulse Rate 92 05/19/25 14:23 Respiratory Rate 20 05/19/25 14:23 Blood Pressure 187/127 H 05/19/25 14:23 Pulse Oximetry 96 05/19/25 14:23 Oxygen Delivery Room Air 05/19/25 14:23 Temperature 97.8 F 05/19/25 14:23 Pulse Rate 92 05/19/25 14:23 Respiratory Rate 20 05/19/25 14:23 Blood Pressure 187/127 H 05/19/25 14:23 Pulse Oximetry 96 05/19/25 14:23 Oxygen Delivery Room Air 05/19/25 14:23 MDM - Skin/Abscess/Foreign Bdy MDM Narrative Medical decision making narrative: MEDICAL DECISION MAKING AND COURSE IN THE ED WITH INTERPRETATION/REVIEW OF DIAGNOSTIC STUDIES: Electronic medical record was reviewed. Patient presented to the ED with complaint of painful skin rash. Vitals [were within acceptable limits]. Physical exam revealed area of tenderness and induration consistent with cellulitis, without fluctuance that may benefit from drainage. He had no systemic symptoms. Patient does also have asymptomatic hypertension. No signs or symptoms of end organ dysfunction; no chest pain or shortness of breath, neurological deficits, severe headaches, visual disturbance, oliguria, or symptoms of dissection/AAA). Long-term risks of hypertension, especially uncontrolled, were discussed including increased risks of kidney disease, vascular disease, stroke and heart disease. He had ran out of his blood pressure medications and his has already made him a follow-up appointment with his primary care doctor to get back on medications. [Patient was given Keflex here and a course to continue at home.] I will also resume him on his usual losartan does. The patient is discharged home in stable condition. I have asked the patient to return to the emergency department for worsening pain, worsening and increasing size of skin infection, fevers/chills. The patient is instructed to follow up with [PCP] in 3 days. Patient verbalized understanding. Discharge Plan Discharge Clinical Impression: Cellulitis Patient Disposition: Home Condition: Stable Instructions: Antibiotic Form, Cellulitis (ED), Chronic Hypertension (ED) Additional Instructions: Please follow up with your PCP for your hypertension and the breast surgeon for your left breast. Come back to the ER if your symptoms get worse or if they don't improve. Patient Language: Luxembourgish Prescriptions: New losartan 100 mg tablet 100 mg PO DAILY Qty: 30 0RF cephalexin 750 mg capsule 750 mg PO Q8H 7 Days Qty: 21 0RF No Action omeprazole 40 mg capsule,delayed release(DR/EC) 40 mg PO DAILY escitalopram oxalate [Lexapro] 10 mg tablet 10 mg PO DAILY atorvastatin [Lipitor] 40 mg tablet 40 mg PO DAILY albuterol sulfate 90 mcg/actuation HFA aerosol inhaler 1 puff inhalation Q4H PRN (Reason: Shortness Of Breath) fluticasone propionate 44 mcg/actuation HFA aerosol inhaler 1 inh inhalation ONCE Rx Instructions: administer with spacer losartan 100 mg tablet 100 mg PO DAILY amlodipine 5 mg tablet 5 mg PO DAILY colestipol 1 gram tablet 1 g PO BID Qty: 60 3RF dicyclomine 20 mg tablet 20 mg PO QID Qty: 120 0RF amitriptyline 10 mg tablet 10 mg PO QHS Qty: 30 3RF Follow-up/Referrals: Carlos,NHAN Castillo [Primary Care Provider] - Kelsey Lezama MD [Physician] - 2 Days
[2025-05-19] MEDS: CEPHALEXIN 250 MG CAPSULE 750 MG PO (15:28)
--- OUTSIDE RECORDS SUMMARY | 2025-05-19 15:28 | XMS_ITS | Encounter Summary ---
Author Organization [facility] Address [facility]6 [place] [address] Care Team Providers Care Environmental Educator Name Role Phone Kecia GoodwinNP Primary Care Provider [phone] Mari English NP Primary Care Provider + [phone] Encounter Details Date Type Department Care Team (Late st Contact Info) Description 01/21/2022 [employer] Message [employer] [facility] Medical Group Family & Internal Medicine [address] [address] [employer], [facility] Provider Results Social History Tobacco Use Types [...] documented as of this encounter Care Teams Environmental Educator Relationship Specialty Start Date End Date Kecia Goodwin APNP [address] [phone] PCP - General Nurse Practitioner Family 04/22/1902/06 [place] [address] [facility] [address] [place] [address] PCP - General Nurse Practitioner Family 03/21/23 documented as of this encounter
--- OUTSIDE RECORDS SUMMARY | 2025-05-19 15:28 | XMS_ITS | Encounter Summary ---
Author Organization [facility] Address [facility] [place] [address] Care Team Providers Care Fur Tinter Name Role Phone Kecia GoodwinNP Primary Care Provider [phone] Mari English NP Primary Care Provider + [phone] Encounter Details Date Type Department Care Team (Late st Contact Info) Description 06/14/2022 [employer] Message Enc [facility] Medical Group Family & Internal Medicine [address] [address] [employer], [facility] Provider Losartan medication Social History Tobacco Use [...] documented as of this encounter Care Teams Fur Tinter Relationship Specialty Start Date End Date Kecia Goodwin APNP [address] [phone] PCP - General Nurse Practitioner Family [birth year]/1903/06 [place] [address] [facility] [address] [facility] [place] [address] PCP - General Nurse Practitioner Family 03/21/23 documented as of this encounter
--- OUTSIDE RECORDS SUMMARY | 2025-05-19 15:28 | XMS_ITS | Continuity of Care Document ---
Author Name [facility] Organization [facility] Care Team Providers Care Binder Stripper Machine Name Role Phone [facility] Unavailable Unavailable Problems Combined list of problems from Department of Defense and Veterans Affairs facilities. It does not include entries that were removed or entered in error. Problem Status Onset Date Problem Type Date of Resolution Comments Source DRY EYE SYNDROME Active Condition DoD Dietary Counseling Pertaining To Specific Condition Active Condition DoD GASTROENTERITIS Active Condition DoD nausea Inactive Condition DoD CHRONIC ASTHMATIC BRONCHITIS Active Condition DoD joint pain, localized in the knee Active Condition DoD VIRAL SYNDROME Inactive Condition DoD Vaccines Prophylactic Need Against Influenza Inactive Condition DoD ADJUSTMENT DISORDER WITH DEPRESSED MOOD Inactive Condition DoD ADJUSTMENT DISORDER WITH ANXIETY AND DEPRESSED MOOD Active Condition DoD NO PSYCHIATRIC DIAGNOSIS OR CONDITION ON AXIS I Inactive Condition DoD HEARING LOSS Active Condition DoD tobacco use Active Condition DoD HYPERLIPIDEMIA Active Condition DoD highly irritable Active Condition DoD visit for: services physical separation Active Condition DoD MARITAL PROBLEM Inactive Condition DoD foot pain (soft tissue) Active Condition DoD OTHER SPECIFIED FAMILY CIRCUMSTANCES Active Condition DoD OCCUPATIONAL PROBLEM Active Condition D oD PARTNER RELATIONAL PROBLEM Inactive Condition DoD Inquiry And Counseling: For Marital Conflict Inactive Condition DoD Body Mass Index Inactive Condition DoD Patient Education - Dietary Active Condition DoD OBESITY Active Condition DoD 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 DoD 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 DoD METATARSALGIA Active Condition DoD BUNION RIGHT Active Condition DoD FOOT STRAIN Inactive Condition DoD CONTUSION WITH INTACT SKIN SURFACE - FOOT Inactive Condition DoD visit for: screening exam depression Inactive Condition DoD feeling tired or poorly Active Condition DoD visit for: administrative purpose Inactive Condition DoD ADJUSTMENT DISORDER Active Condition Do D Nervous System Special Senses Device Inactive Condition DoD Hearing Services Hearing Aid Fitting/Orientation/C hecking Of Active Condition DoD 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 DoD visit for: occupational health / fitness exam Active Condition DoD CONDUCTIVE HEARING LOSS Active Condition DoD PULMONARY OBSTRUCTIVE DISORDERS Active Condition DoD NICOTINE DEPENDENCE - CONTINUOUS Active Condition DoD visit for: ears/hearing exam following abn hearing screening Active Condition DoD Central Auditory Function Test Nonspecific Abnormal Findings Active Condition DoD ATYPICAL CHEST PAIN Inactive Condition D oD ESSENTIAL HYPERTENSION Active Condition DoD difficulty breathing (dyspnea) Active Condition DoD Need For Vaccination Hepatitis A Active Condition DoD visit for: preoperative exam Active Condition DoD Blood Pressure Isolated Elevated Active Condition DoD Back Muscle Spasm Inactive Condition DoD visit for: services physical Active Condition DoD ASSESSMENT OF PATIENT CONDITION WORK-RELATED Active Condition DoD COMPRESSION ARTHRALGIA - KNEE / PATELLA / TIBIA / FIBULA Active Condition DoD OTOSCLEROSIS Active Condition 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 DoD Outpatient Physician Consultation Active Condition DoD visit for: ears / hearing exam Active Condition DoD Patient Education - Injury Prevention Active Condition DoD ASSESS PATIENT CONDITION WORK-RELATED OCCUPATIONAL DISEASE Active Condition 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 It does not include entries that were removed or entered in error. Substance Category Reaction Severity Reaction type Status Date Reported Comments Source No Known Allergies Drug allergy (disorder) active 03/07/2012 [place] Immunizations Combined list of available immunizations from the Department of Defense and Veterans Affairs facilities. Immunization Series Date Given Administered By Site Reaction Lot Number CVX Code Drug Marketing Lead Status Comments Source influenza virus vaccine, live, attenuated, for intranasal use 1 2010 [id number] [employer] (MED) complet ed influenza virus vaccine, live, attenuate d, for intranasa l use DoD varicella virus vaccine 1 2010 [id number] Merck (MSD) complet ed varicella virus vaccine DoD anthrax vaccine 3 2010 [id number] [employer] [place] (MIP) complet ed anthrax vaccine DoD hepatitis B vaccine, adult dosage 4 2010 [id number] [employer] (SKB) complet ed hepatitis B vaccine, adult dosage DoD typhoid Vi capsular polysaccharid e vaccine 1 2010 [id number] Sanofi Pasteur (PMC) complet ed typhoid Vi capsular polysacch aride vaccine DoD influenza virus vaccine, live, attenuated, for intranasal use 1 2009 THERON SMITH [id number] [employer] (MED) complet ed influenza virus vaccine, live, attenuate d, for intranasa l use DoD anthrax vaccine 2 2009 [id number] [employer] [place] ([facility]) complet ed anthrax vaccine DoD anthrax vaccine 1 2009 [id number] [employer] ([facility]) complet ed anthrax vaccine DoD typhoid Vi capsular polysaccharid e vaccine 1 2009 [id number] Sanofi Pasteur ([facility]) complet ed typhoid Vi capsular polysacch aride vaccine DoD Novel influenza-H1N 1-09, injectable 1 2008 [id number] 127 Unknown (UNK) complet ed Novel influenza -F2T5-63, injectabl e DoD influenza virus vaccine, live, attenuated, for intranasal use 1 2008 [id number] 111 Unknown (UNK) comple t ed influenza virus vaccine, live, attenuate d, for intranasa l use DoD hepatitis A and hepatitis B vaccine 3 2008 Unknown, Provider [id number] 104 [employer] (SKB) complet ed hepatitis A and hepatitis B vaccine DoD tuberculin skin test; purified protein derivative solution, intradermal 1 2008 MIKY BANEGAS 96 Transcribed (TRS) complet ed tuberculi n skin test; purified protein derivativ e solution, intraderm al DoD measles, mumps and rubella virus vaccine 1 2008 [id number] Merck (MSD) complet ed measles, mumps and rubella virus vaccine DoD hepatitis A and hepatitis B vaccine 2 2008 [id number] 104 [employer] (SKB) complet ed hepatitis A and hepatitis B vaccine DoD measles, mumps and rubella virus vaccine 1 2008 [id number] Merck (MSD) complet ed measles, mumps and rubella virus vaccine DoD poliovirus vaccine, inactivated 1 2008 [id number] Sanofi Pasteur ([facility]) complet ed polioviru s vaccine, inactivat ed DoD influenza virus vaccine, split virus (incl. purified surface antigen)-reti red CODE 1 2008 [id number] 15 Sanofi Pasteur ([facility]) complet ed influenza virus vaccine, split virus (incl. purified surface antigen)- retired CODE DoD varicella virus vaccine 1 2008 UNK 21 Unknown (UNK) Not Given varicella virus vaccine DoD hepatitis A and hepatitis B vaccine 1 2008 [id number] 104 [employer] (SKB) complet ed hepatitis A and hepatitis B vaccine DoD meningococcal polysaccharid e (groups A, C, Y and W-135) diphtheria toxoid conjugate vaccine (MCV4P) 1 2008 [id number] Sanofi Pasteur (PMC) complet ed meningoco ccal polysacch aride (groups A, C, Y and W-135) diphtheri a toxoid conjugate vaccine (MCV4P) DoD tetanus toxoid, reduced diphtheria toxoid, and acellular pertu is vaccine, adsorbed 1 2008 [id number] Sanofi Pasteur (PMC) complet ed tetanus toxoid, reduced diphtheri a toxoid, and acellular pertussis vaccine, adsorbed DoD Encounters Combined list of: 1) Encounters from Department of Veterans Affairs facilities going backup to the last 18 months, not all VA inpatient encounters are included; 2) Encounters from the Department of Defense facilities going backup to 280 months. Location Location Details Encounter Type Encounter Number Reason For Visit Attending Provider ADM Date DC Date Status Disposition Source [facility] [place] [facility] Guzman(IEP Optometry ) OUTPATIENT [id number] EMILIA ARMSTRONG 12/17 Released w/o Limitations [facility] [place] [facility] Guzman(IEP Optomet ry) [facility] [place] [facility] Guzman(C-T[facility] Er Module) OUTPATIENT [id number] mmot NICOLE Flanagan 12/18 Released w/o Limitations [facility] [place] [facility] Guzman(C-TM C Er Module) [facility] [place] [facility] Guzman(IEP Hearing Conservat ion Exam) OUTPATIENT [id number] MILTON RINCON 12/19 Released w/o Limitations [facility] [place] [facility] Guzman(IEP Hearing Conserv ation Exam) [facility] [place] [facility] Guzman(Audiol ogy) OUTPATIENT [id number] NEPTALI HUTCHINSON 12/19 Released w/o Limitations [facility] [place] [facility] Guzman(Elijah ology) [facility] [place] [facility] Guzman(Otolar yngology) OUTPATIENT [id number] per JULIANE Preciado 12/23 Released w/o Limitations [facility] [place] [facility] [place]) OUTPATIENT [id number] knees-f eet NICOLE Mittal W 01/24 Released with Work/Duty Limitations [facility] [place]-TM C Er Module[place]Hear[place] Conservat ion [facility]) OUTPATIENT [id number] INPROCE NUVIA NGUYEN 05/18 Released w/o Limitations [place]Hear ing Conserv ation [facility]) [place]Immuni zations [facility]) OUTPATIENT [id number] inproce GWEN TAFOYA 06/18 Released w/o Limitations [place](Immu nizatio ns [facility]) [place] OUTPATIENT [id number] pulled back muscle MARIEL GRACE 06/25 Released w/o Limitations [place] [facility] [place]) OUTPATIENT [id number] right shoulde r pn MARIEL GRACE 06/29 Released with Work/Duty Limitations [place] [facility] [place] [place](Ophth- Ref Eye) OUTPATIENT [id number] Pre-op MEGHNA PALUMBO 07/27 Released w/o Limitations [place]Op[place]-Ref Eye) [place] [facility]) OUTPATIENT [id number] IMM [place] 08/05 Released w/o Limitations [place] Immun[facility]) [place]) OUTPATIENT [id number] FOLLOW UP MARIEL GRACE 08/05 Released with Work/Duty Limitations [place] [facility]) [place]Hearin [place] Conservat ion [facility]) OUTPATIENT [id number] ANNUAL STS NUVIA MATTSON 08/12 Released w/o Limitations [place]Hear ing Conserv ation [facility]) [place]Hearin [place] Conservat ion [facility]) OUTPATIENT [id number] F/up 1 -2 re establi shed NUVIA MATTSON 08/13 Released w/o Limitations [place]Hear [place] Conserv [facility]) [place](Adult Medicine) [place]PATIENT [id number] difficu lty breathi ng (dyspne a) SRAVAN GARCIA 08/13 Released w/o Limitations [place](Adul [place] Medicin [place]) [place]Audiol [place]gy) OUTPATIENT [id number] SHRAVAN DAVIS 09/11 Released w/o Limitations [place]lijah [place]log[place]) [place]Otolar yngology) OUTPATIENT [id number] CONDUCT ANNA HEARING LOSS ASHANTI HUNG 10/15 Released w/o Limitations [place] ar[place]ol [place]gy[place]Audiol [place]gy) OUTPATIENT [id number] appt after ENT for aids SHRAVAN DAVIS 10/20 Released w/o Limitations [place]li[place] [facility] [facility] [place]iol [place]gy[place] OUTPATIENT [id number] Program new L aid SHRAVAN DAVIS 11/12 Released w/o Limitations [place] [facility] [place] [facility] [place]iol [place]gy[place] OUTPATIENT [id number] fitting SHRAVAN DAVIS 11/24 Released w/o Limitations [place] [facility] [place]) [place] [facility] OUTPATIENT [id number] RAFIQ Quezada 12/07 Released w/o Limitations [place]) [place] [facility]) OUTPATIENT [id number] maryam DANTE ISLASGRACIELA You 12/07 Released w/o Limitations [place] [facility] [place]am) [place] OUTPATIENT [id number] ANIKA Naqvi 12/09 Released w/o Limitations [place] [place]) OUTPATIENT [id number] MARIEL DAWKINS 01/02 Released w/o Limitations [place](Ailyn gency Medicin e) [place]Audiol [place]gy[place] OUTPATIENT [id number] Order replace ment aid SHRAVAN DAVIS 01/04 Released w/o Limitations [place] [place]li[place] [facility] [place]Audiol [place]gy[place] OUTPATIENT [id number] Program replace ment aid SHRAVAN DAVIS 01/08 Released w/o Limitations [place] [facility] [place] OUTPATIENT [id number] pn with both feet VINITA ALONZO 01/11 Released with Work/Duty Limitations [place] [place](Podiat [place]) [place]PATIENT [id number] FOOT STRAIN JS DE LA CRUZ 01/26 Released with Work/Duty Limitations [place]Pod[place]ry) [place]Nutrit [place] Care[place] OUTPATIENT [id number] STEVEN Aly 03/03 Released w/o Limitations [place] [place]Nutr [place]ion Care) [place] OUTPATIENT [id number] FOOT PAIN, REFERRA ASPEN SILVER 06/09 Released with Work/Duty Limitations [facility] [place]iat [place] TELE CONSULT [id number] Results receive JS Costa 06/15 [place]ry[place] [place] [facility] OUTPATIENT [id number] CHAPT PT I RAFIQ DOSHI Y 06/29 Released w/o Limitations [place] Physica l Exam) [place] [place] [facility] OUTPATIENT [id number] ETS GUSTAVO ALVARADON 06/29 Released w/o Limitations [place] [facility] [place]) [place] [facility] [place] [facility]) OUTPATIENT [id number] trans RAFIQ DOSHI Rufina 06/29 Released w/o Limitations [place] [facility] [place]) [place] [facility] [place] OUTPATIENT [id number] chp pe prt 2 ASPEN ROMERO 07/02 Released w/o Limitations [place]) [place]) TELE CONSULT [id number] CONSULT REPORT RECEIVE ASPEN KHANNA 07/09 [place]) [place] [facility]) OUTPATIENT [id number] flu mist CLARE PEREZ 08/19 Released w/o Limitations [place] OUTPATIENT [id number] F/u right foot/le g surgery ASPEN ROMERO 08/26 Released w/o Limitations [place]) [place]) TELE CONSULT [id number] report receive ASPEN Khanna 10/15 [place]) [place]ear[place] Conservat ion [facility]) OUTPATIENT [id number] pre-dep chauymSTEPHANIE Nichole 11/11 Released w/o Limitations [place]Hear [place] Conserv ation [facility]) [place]Nutrit [place] Care) OUTPATIENT [id number] Move 1 EDDIE BLANTON 12/31 Released w/o Limitations [place]Nut[place]ion Care) [place] [facility] OUTPATIENT [id number] NVD RITZ, PEPE W 06/29 Sick at Home/Quarter s [place]) [place] OUTPATIENT [id number] follow up for BP RITZ, PEPE W 06/30 Released w/o Limitations [facility] [place] [place] OUTPATIENT [id number] f/u for knee issue TREANNA ASPEN Yokasta 07/07 Released with Work/Duty Limitations [place] [facility] [place]) [place] [place] [facility] OUTPATIENT [id number] KNEES NUBIA HOLLOWAY 07/19 Released w/o Limitations [place] [facility] [place]) [place] [place] [facility] OUTPATIENT [id number] REFERRA VINITA RIVERA 08/23 Released w/o Limitations [place] [facility] [place]) [place] [place] [facility] OUTPATIENT [id number] V/D/Sto mach ANA MARÍA Messina 09/07 Released w/o Limitations [place] [facility] [place] [facility] [place] [place] Care) OUTPATIENT [id number] Move / Unit JOSE R RAFIQ Roge 09/23 Released w/o Limitations [place] [facility] [place]ut[place]ion Care[place] [facility] [place] [facility] OUTPATIENT [id number] phase 1 chapter physica l ANAMIKA BIANCHI 10/11 Released w/o Limitations [facility] [place] [facility]) OUTPATIENT [id number] TRANSCR NUVIA PACHECO 10/11 Released w/o Limitations [place] [facility] [place]) [place] OUTPATIENT [id number] Both Knees PEPE WISE W 10/12 Released w/o Limitations [place] [facility] [place] [place] OUTPATIENT [id number] chp phys PEPE WISE W Released w/o Limitations [place] [place] OUTPATIENT [id number] KAYKAY Rust 02/21 Released w/o Limitations [place] OUTPATIENT [id number] DEPRESS ION PEPE WISE W 03/07 Released w/o Limitations [facility] [facility] [place] [facility] [place]Audiol [place]gy) [place]PATIENT [id number] replace lost aid SHRAVAN DAVIS 03/09 Released w/o Limitations [facility] [place] [place] [facility] [place]) OUTPATIENT [id number] fitting SHRAVAN DAVIS 03/21 Released w/o Limitations [place] [place] Procedures Combined list of: 1) Procedures from Department of Veterans Affairs facilities going back up to thelast 18 months, not all VA non-surgical procedures are included; 2) All procedures from the Department of Defense facilities. Procedure Procedure Type Code Date Perfomer Comments [facility] e HEPATITIS A AND HEPATITIS B VACCINE (HEPA-HEPB), ADULT DOSAGE, FOR INTRAMUSCULAR USE 04/06/2 009 DoD MEASLES, MUMPS AND RUBELLA VIRUS VACCINE (MMR), LIVE, FOR SUBCUTANEOUS USE [facility] MEASLES, MUMPS AND RUBELLA VIRUS VACCINE (MMR), LIVE, FOR SUBCUTANEOUS USE [facility] TYMPANOMETRY (IMPEDANCE TESTING) [facility] COMPREHENSIVE AUDIOMETRY THRESHOLD EVALUATION AND SPEECH RECOGNITION (80819 AND 69655 COMBINED) [facility] AUDIOMETRIC TESTING OF GROUPS [facility] COLLECTION OF VENOUS BLOOD BY VENIPUNCTURE [facility] FITTING OF SPECTACLES, EXCEPT FOR APHAKIA; MONOFOCAL [facility] PSYCHIATRIC EVALUATION OF HOSPITAL RECORDS, OTHER PSYCHIATRIC REPORTS, PSYCHOMETRIC AND/OR PROJECTIVE TESTS, AND OTHER ACCUMULATED DATA FOR MEDICALDIAGNOSTIC PURPOSES [facility] ELECTROACOUSTIC EVALUATION FOR HEARING AID; BINAURAL [facility] PSYCHIATRIC EVALUATION OF HOSPITAL RECORDS, OTHER PSYCHIATRIC REPORTS, PSYCHOMETRIC AND/OR PROJECTIVE TESTS, AND OTHER ACCUMULATED DATA FOR MEDICALDIAGNOSTIC PURPOSES [facility] ACOUSTIC REFLEX TESTING, THRESHOLD [facility] PSYCHIATRIC EVALUATION OF HOSPITAL RECORDS, OTHER PSYCHIATRIC REPORTS, PSYCHOMETRIC AND/OR PROJECTIVE TESTS, AND OTHER ACCUMULATED DATA FOR MEDICALDIAGNOSTIC PURPOSES [facility] DETERMINATION OF REFRACTIVE STATE [facility] PSYCHIATRIC DIAGNOSTIC INTERVIEW EXAMINATION [facility] SCREENING TEST OF VISUAL ACUITY, QUANTITATIVE, BILATERAL [facility] MEDICAL NUTRITION THERAPY; GROUP (2 OR MORE INDIVIDUAL(S)), EACH 30 MINUTES DoD SCREENING TEST OF VISUAL ACUITY, QUANTITATIVE, BILATERAL 011 DoD THERAPEUTIC PROCEDURE, 1 OR MORE AREAS, EACH 15 MINUTES; THERAPEUTIC EXERCISES TO DEVELOP STRENGTH AND ENDURANCE, RANGE OF MOTION AND FLEXIBILITY DoD SCREENING TEST OF VISUAL ACUITY, QUANTITATIVE, BILATERAL 011 DoD SCREENING TEST OF VISUAL ACUITY, QUANTITATIVE, BILATERAL DoD INDIVIDUAL PSYCHOTHERAPY, INSIGHT ORIENTED, BEHAVIOR MODIFYING AND/OR SUPPORTIVE, IN AN OFFICE OR OUTPATIENT FACILITY, APPROXIMATELY 20 TO 30 MINUTES [id number] WITH THE PATIENT DoD SCREENING TEST OF VISUAL ACUITY, QUANTITATIVE, BILATERAL 011 [facility] MEDICAL NUTRITION THERAPY; GROUP (2 OR MORE INDIVIDUAL(S)), EACH 30 MINUTES [facility] PURE TONE AUDIOMETRY (THRESHOLD); AIR ONLY [facility] IMMUNIZATION ADMINISTRATION BY INTRANASAL OR ORAL ROUTE; 1 VACCINE (SINGLE OR COMBINATION VACCINE/TOXOID) [facility] INDIVIDUAL PSYCHOTHERAPY, INSIGHT ORIENTED, BEHAVIOR MODIFYING AND/OR SUPPORTIVE, IN AN OFFICE OR OUTPATIENT FACILITY, APPROXIMATELY 20 TO 30 MINUTES [id number] W THE PATIENT; W MED EVAL & MGT SER [facility] INDIVIDUAL PSYCHOTHERAPY, INSIGHT ORIENTED, BEHAVIOR MODIFYING AND/OR SUPPORTIVE, IN AN OFFICE OR OUTPATIENT FACILITY, APPROXIMATELY 45 TO 50 MINUTES [id number] WITH THE PATIENT [facility] PSYCHIATRIC DIAGNOSTIC INTERVIEW EXAMINATION [facility] VIS FUNCT SCREEN,AUTOMAT/SEMI-A UTOMAT BILAT QUANT DETERM VISUAL ACUITY,OCULAR ALIGN,COLOR VISION,PSEUDOISOCHROM AT PLATES,& FIELD VIS (MAY INC ALL/SOME SCRN DETERM FOR CONTRAST SENSITIV,VIS UND GLARE) [facility] FAMILY PSYCHOTHERAPY (CONJOINT PSYCHOTHERAPY) (WITH PATIENT PRESENT), 50 MINUTES [facility] GROUP PSYCHOTHERAPY (OTHER THAN OF A MULTIPLE-FAMILY GROUP) [facility] INTERACTIVE GROUP PSYCHOTHERAPY [facility] INTERACTIVE GROUP PSYCHOTHERAPY [facility] PSYCHIATRIC DIAGNOSTIC INTERVIEW EXAMINATION [facility] PSYCHIATRIC DIAGNOSTIC INTERVIEW EXAMINATION [facility] SCREENING TEST OF VISUAL ACUITY, QUANTITATIVE, BILATERAL [facility] EDUCATIONAL SUPPLIES, SUCH BOOKS, TAPES, AND PAMPHLETS, FOR THE PATIENT'S EDUCATION AT COST TO PHYSICIAN OR OTHER QUALIFIED HEALTH VICE PRESIDENT PRECISION MARKET INSIGHTS [facility] IMPRESSION CASTING OF A FOOT PERFORMED BY A PRACTITIONER OTHER THAN THE CHIROPRACTIC DOCTOR OF THE ORTHOTIC [facility] HEARING AID CHECK; MONAURAL DoD SPECIAL REPORTS SUCH INSURANCE FORMS, MORE THAN THE INFORMATION CONVEYED IN THE USUAL MEDICAL COMMUNICATIONS OR STANDARD REPORTING FORM [facility] SCREENING TEST OF VISUAL ACUITY, QUANTITATIVE, BILATERAL [facility] INTERACTIVE GROUP PSYCHOTHERAPY DoD HEARING AID CHECK; MONAURAL DoD HEARING AID CHECK; MONAURAL DoD SPECIAL REPORTS SUCH INSURANCE FORMS, MORE THAN THE INFORMATION CONVEYED IN THE USUAL MEDICAL COMMUNICATIONS OR STANDARD REPORTING FORM [facility] PATIENT EDUCATION, NOT OTHERWISE CLASSIFIED, NON-PHYSICIAN PROVIDER, INDIVIDUAL, PER SESSION [facility] HOLDING CHAMBER OR SPACER FOR USE WITH AN INHALER OR NEBULIZER; WITHOUT MASK [facility] EAR PROTECTOR ATTENUATION MEASUREMENTS [facility] AUDIOMETRIC TESTING OF GROUPS [facility] ELECTROCARDIOGRAM, ROUTINE ECG WITH AT LEAST 12 LEADS; WITH INTERPRETATION AND REPORT [facility] IMMUNIZATION ADMINISTRATION (INCLUDES PERCUTANEOUS, INTRADERMAL, SUBCUTANEOUS, OR INTRAMUSCULAR INJECTIONS); 1 VACCINE (SINGLE OR COMBINATION VACCINE/TOXOID) [facility] DETERMINATION OF REFRACTIVE STATE [facility] THERAPEUTIC, PROPHYLACTIC, OR DIAGNOSTIC INJECTION (SPECIFY SUBSTANCE OR DRUG); SUBCUTANEOUS OR INTRAMUSCULAR [facility] COLLECTION OF VENOUS BLOOD BY VENIPUNCTURE [facility] AUDIOMETRIC TESTING OF GROUPS [facility] Tympanometry Tympanometry 75174 009 NEPTALI HUTCHINSON [facility] Comprehensive Audiometry Comprehensive Audiometry 27307 009 NEPTALI HUTCHINSON [facility] Determination Of Refractive State Determination Of Refractive State 43975 009 SABINE THURMAN [facility] Screening Test Of Visual Acuity, Quantitative, Bilateral Screening Test Of Visual Acuity, Quantitative, Bilateral 33100 009 SABINE THURMAN [facility] Spectacles Services Fitting Monofocals (Not For Aphakia) Spectacles Services Fitting Monofocals (Not For Aphakia) 88049 009 SABINE THURMAN Electroacoustic Evaluation For Hearing Aid - Binaural Electroacoustic Evaluation For Hearing Aid - Binaural 22925 012 SHRAVAN DAVIS [facility] Psychiatric Evaluation Review of Records and Reports Psychiatric Evaluation Review of Records and Reports 16710 NATALIE JOHNS [facility] Cognitive Mini-Mental Status Exam NATALIE JOHNS [facility] Social Work Individual Outpatient Counseling 45-50 Minutes Social Work Individual Outpatient Counseling 45-50 Minutes 11462 NATALIE JOHNS [facility] Dispensing fee, monaural hearing aid, any type SHRAVAN DAVIS [facility] Hearing aid, digital, monaural, BTE SHRAVAN DAVIS Phonak Sheri H20 serial# [id number], 2 yr warranty exp 03/15/2014. [facility] Evaluation Of Auditory Rehabilitation Status SHRAVAN DAVIS [facility] Battery for use in hearing device SHRAVAN DAVIS Size 13 DoD Psychiatric Evaluation Review of Records and Reports Psychiatric Evaluation Review of Records and Reports 64121 YESENIA PRICE [facility] Social Work Individual Outpatient Counseling 45-50 Minutes Social Work Individual Outpatient Counseling 45-50 Minutes 92953 YESENIA PRICE [facility] Acoustic Reflex Testing SHRAVAN DAVIS [facility] Tympanometry Tympanometry 74170 SHRAVAN DAVIS [facility] Threshold Audiogram Air And Bone Threshold Audiogram Air And Bone 73617 SHRAVAN DAVIS [facility] Psychiatric Evaluation Review of Records and Reports Psychiatric Evaluation Review of Records and Reports 60908 012 YESENIA PRICE [facility] Social Work Individual Outpatient Counseling 75-80 Minutes Social Work Individual Outpatient Counseling 75-80 Minutes 43282 012 YESENIA PRICE [facility] Determination Of Refractive State Determination Of Refractive State 63255 012 KAYKAY GALLEGOS [facility] Ophthalmological Prior Patient Start Comprehensive Care Ophthalmological Prior Patient Start Comprehensive Care 73049 012 KAYKAY GALLEGOS [facility] Psychiatric Evaluation Comprehensive Examination Psychiatric Evaluation Comprehensive Examination 78647 012 MARGARITO SENA V [facility] Screening Test Of Visual Acuity, Quantitative, Bilateral Screening Test Of Visual Acuity, Quantitative, Bilateral 29879 011 ANAMIKA BIANCHI [facility] Medical Nutrition Therapy Group (2 or More Individual(s)) Medical Nutrition Therapy Group (2 or More Individual(s)) 77999 011 RAFIQ ODELL Start time: 0830 End time: 1000 [facility] Physical Therapy: ___ Se ion Segments, 15 Minutes Each Physical Therapy: ___ Session Segments, 15 Minutes Each 86166 011 NUBIA HOLLOWAY Physical Medicine Physical Therapy Evaluation Physical Medicine Physical Therapy Evaluation 34490 011 NUBIA HOLLOWAY Social Work Individual Outpatient Counseling 20-30 Minutes Social Work Individual Outpatient Counseling 20-30 Minutes 27646 011 RENETTA TIERNEY [facility] Medical Nutrition Therapy Group (2 or More Individual(s)) Medical Nutrition Therapy Group (2 or More Individual(s)) 12833 011 EDDIE BLANTON [facility] Audiometry Group Testing Audiometry Group Testing 88932 011 STEPHANIE COOK [facility] Ear Protector Attenuation Measurements Ear Protector Attenuation Measurements 79879 011 STEPHANIE COOK [facility] Threshold Audiogram (Pure Tone) Threshold Audiogram (Pure Tone) 39759 011 STEPHANIE COOK [facility] Influenza Virus Vaccine Live Intranasal 010 CLARE PEREZ [facility] Immunization Admin By Intranasal / Oral Route One Vaccine Immunization Admin By Intranasal / Oral Route One Vaccine 40400 010 CLARE PEREZ [facility] Psychiat Therapy Indiv Appr 20-30 Min W/ Med Eval Managemt Psychiat Therapy Indiv Appr 20-30 Min W/ Med Eval Managemt 11747 010 PRESTON OLEARY [facility] Social Work Individual Outpatient Counseling 45-50 Minutes Social Work Individual Outpatient Counseling 45-50 Minutes 97949 010 NATALIE JOHNS [facility] Psychiatric Evaluation Comprehensive Examination Psychiatric Evaluation Comprehensive Examination 52532 010 NATALIE JOHNS [facility] Visual Function Screening Visual Function Screening 83618 010 GUSTAVO FELIPE [facility] Clinical Social Work Counseling Family Conjoint 010 EVA TALAMANTES [facility] Clinical Social Work Counseling Group Clinical Social Work Counseling Group 82557 010 EVA TALAMANTES [facility] Psychiatric Therapy Group (Interview) Psychiatric Therapy Group (Interview) 71765 010 HORACE MACK [facility] Psychologic Testing And Report Administered By Computer Psychologic Testing And Report Administered By Computer 98076 010 RAFIQ GARZA [facility] Clinical Social Work Counseling Group Clinical Social Work Counseling Group 98478 010 CHELO VALENTINE [facility] Psychiatric Evaluation Comprehensive Examination Psychiatric Evaluation Comprehensive Examination 44189 010 RAFIQ GARZA [facility] Psychiatric Evaluation Comprehensive Examination Psychiatric Evaluation Comprehensive Examination 44516 010 EVA TALAMANTES [facility] -Supervised Services Provision Of Educational Supplies -Supervised Services Provision Of Educational Supplies 14159 STEVEN HODGSON [facility] Nutrition cla es, non-physician provider, per se ion STEVEN HODGSON [facility] Medical Nutrition Therapy Group (2 or More Individual(s)) Medical Nutrition Therapy Group (2 or More Individual(s)) 35909 STEVEN HODGSON [phone] start/stop time [facility] Impre ion casting of a foot performed by a practitioner other than the grades 1 through 5 teacher of the orthotic JS DE LA CRUZ [facility] Supervised Ordering / Handling / Fitting Patient Devices Supervised Ordering / Handling / Fitting Patient Devices 93453 010 JS DE LA CRUZ [facility] Hearing Aid Check Hearing Aid Check 16385 01/08 SHRAVAN DAVIS Battery for use in hearing device 010 SHRAVAN DAVIS Electroacoustic Evaluation For Hearing Aid Electroacoustic Evaluation For Hearing Aid [address] Services Special Review / Reporting Of Patient Status Services Special Review / Reporting Of Patient Status 56504 010 SHRAVAN DAVIS Patient education, not otherwise cla ified, non-physician provider, individual, per se ion 010 SHRAVAN DAVIS Screening Test Of Visual Acuity, Quantitative, Bilateral Screening Test Of Visual Acuity, Quantitative, Bilateral 09901 010 KEVON ISLAS [facility] Clinical Social Work Counseling Group Clinical Social Work Counseling Group 12643 010 NATALIE JOHNS [facility] Hearing Aid Check Hearing Aid Check 80413 11/24 010 SHRAVAN DAVIS Evaluation Of Auditory Rehabilitation Status 010 SHRAVAN DAVIS Hearing aid, digital, monaural, CIC 010 SHRAVAN DAVIS Battery for use in hearing device SHRAVAN DAVIS Hearing Aid Check Hearing Aid Check 35521 11/12 SHRAVAN DAVIS Battery for use in hearing device SHRAVAN DAVIS Electroacoustic Evaluation For Hearing Aid Electroacoustic Evaluation For Hearing Aid 71912 SHRAVAN DAVIS Patient education, not otherwise cla ified, non-physician provider, individual, per se ion SHRAVAN DAVIS Dr. Services Special Review / Reporting Of Patient Status Services Special Review / Reporting Of Patient Status 23305 SHRAVAN DAVIS Ear impre ion, each SHRAVAN DAVIS Dr.-Supervised Services Provision Of Special Supplies -Supervised Services Provision Of Special Supplies 11073 SHRAVAN DAVIS Hearing Aid Examination and Selection Hearing Aid Examination and Selection 54941 SHRAVAN DAVIS Patient education, not otherwise cla ified, non-physician provider, individual, per se ion SHRAVAN DAVIS Acoustic Reflex Testing SHRAVAN DAVIS Tympanometry Tympanometry 22742 SHRAVAN DAVIS Comprehensive Audiometry Comprehensive Audiometry 82460 SHRAVAN DAVIS Drug administered through a metered dose inhaler SRAVAN GARCIA Holding chamber or spacer for use with an inhaler or nebulizer; without mask SRAVAN GARCIA Spirometry Post-bronchodilator Spirometry Post-bronchodilator 95018 SRAVAN GARCIA Audiometry Group Testing Audiometry Group Testing 55124 NUVIA MATTSON Ear Protector Attenuation Measurements Ear Protector Attenuation Measurements 69678 NUVIA MATTSON Threshold Audiogram (Pure Tone) Threshold Audiogram (Pure Tone) 16185 NUVIA MATTSON ECG 12-Lead With Interpretation And Report ECG 12-Lead With Interpretation And Report 33305 JASON LANCASTER Normal sinus rhythm at 55 beats per minute normal intervals normal axis normal QRS segments normal ST segments no pathologic T waves noted no wPW no long QT, no brugada criteria [facility] Audiometry Group Testing Audiometry Group Testing 23039 NUVIA MATTSON Threshold Audiogram (Pure Tone) Threshold Audiogram (Pure Tone) 82298 NUVIA MATTSON Ear Protector Attenuation Measurements Ear Protector Attenuation Measurements 94448 NUVIA MATTSON Immunization Administration One Vaccine Immunization Administration One Vaccine [address] [place] Hepatitis A And Hepatitis B (Intramuscular Use) Adult Dosage Hepatitis A And Hepatitis B (Intramuscular Use) Adult Dosage 97851 [place] Ophthalmological New Patient Start Comprehensive Care Ophthalmological New Patient Start Comprehensive Care 45662 MEGHNA PALUMBO [facility] Computerized Corneal Topography Computerized Corneal Topography 55299 MEGHNA PALUMBO Determination Of Refractive State Determination Of Refractive State [address] Supervised Injection Intramuscular Supervised Injection Intramuscular 28274 MARIEL GRACE Injection, ketorolac tromethamine, per 15 mg MARIEL GRACE Toradol 60mg IM [facility] Venipuncture Venipuncture 65865 GWEN TAFOYA Skin Test Anergy Tuberculin Intradermal Skin Test Anergy Tuberculin Intradermal 71597 GWEN TAFOYA Immunization Administration One Vaccine Immunization Administration One Vaccine 49166 GWEN TAFOYA Audiometry Group Testing Audiometry Group Testing 70669 NUVIA MATTSON Ear mold/insert, not disposable, any type NUVIA MATTSON Threshold Audiogram (Pure Tone) Threshold Audiogram (Pure Tone) 02463 NUVIA MATTSON Ear Protector Attenuation Measurements Ear Protector Attenuation Measurements 65715 NUVIA MATTSON Special ENT Services Binocular Microscopy Special ENT Services Binocular Microscopy 86757 JULIANE HUGHES [facility] Tympanometry Tympanometry 08101 JULIANE HUGHES [facility] Comprehensive Audiometry Comprehensive Audiometry 72981 009 JULIANE HUGHES [facility] Ear mold/insert, not disposable, any type 009 MILTON RINCON [facility] Audiometry Group Testing Audiometry Group Testing 66892 009 MILTON RINCON [facility] Social History Combined list of available smoking, tobacco, and other social history from Department of Defense and Veterans Affairs facilities. Social History Type Response Date Comment Sour e This section is an empty social history section. DoD
--- OUTSIDE RECORDS SUMMARY | 2025-05-19 15:28 | XMS_ITS | Encounter Summary ---
Author Organization [facility] Address Formerly [facility], [facility] [place] [address] Care Team Providers Care Electrophysiology Technician Name Role Phone Kecia GoodwinNP Primary Care Provider [phone] Mari English NP Primary Care Provider + [phone] Encounter Details Date Type Department Care Team (Late st Contact Info) Description 06/07/2022 [employer] Network[employer] Message [employer] [facility] Medical Group Family & Internal Medicine [address] [address] [employer], [facility] Provider Lab results Social History Tobacco Use [...] documented as of this encounter Care Teams Electrophysiology Technician Relationship Specialty Start Date End Date Kecia Goodwin APNP [address] [phone] PCP - General Nurse Practitioner Family 04/22/1903/06 [place] [address] [facility] Suite [facility] [place] [address] PCP - General Nurse Practitioner Family 03/21/23 documented as of this encounter
--- OUTSIDE RECORDS SUMMARY | 2025-05-19 15:28 | XMS_ITS | Encounter Summary ---
Author Organization [facility] Address [address] [place] [address] Care Team Providers Care Prosthetic Assistant Name Role Phone Mari English NP Primary Care Provider + [phone] Encounter Details Date Type Department Care Team (Late st Contact Info) Description 05/03/2023 Earlier [employer] Message Enc [facility] Medical Group - [facility] [address] [place], [place] [address] Charlee, [facility] Provider Air Quality Message Social History Tobacco Use Types Packs/Day Years Used Date Smoking Tobacco: Every Day Cigarettes 1.5 22 Smokeless Tobacco: Former Chew Comments:Wants to quit. 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 Alcohol Use Standard Drinks/Week Comments Yes [...] documented as of this encounter Care Teams Prosthetic Assistant Relationship Specialty [place] [address] [id number] PCP - General Nurse Practitioner Family 03/21/23 documented as of this encounter
--- OUTSIDE RECORDS SUMMARY | 2025-05-19 15:28 | XMS_ITS | Clinical Summary ---
Author Organization [facility] Address [address] [place] [address] Care Team Providers Care Book Coverer Name Role Phone Mari English NP Primary Care Provider + [phone] Allergies No known active allergies Medications Eluxadoline [...] Diagnosed Date Resolved Date Encounter for [facility] examination in adult 04/22/2019 07/17/2020 Immunizations Immunization [...] Counseling Given: Yes Comments:Wants to quit. Please counselor aide. Alcohol Use Standard Drinks/Week Comments Yes 0 [...] - 2023-2 5 season) 2024 PHQ-2 (Physician [place]) 11/06/2024 Hepatitis C 06/03/2052 Postponed from 2004 [...] [facility] Care Teams Book Coverer Relationship Specialty [place] [address] [facility] [address] [place] [address] PCP - General Nurse Practitioner Family 03/21/23
--- OUTSIDE RECORDS SUMMARY | 2025-05-19 15:28 | XMS_ITS | Encounter Summary ---
Author Organization [facility] Address [facility] [place] [address] Care Team Providers Care Outreach Manager Name Role Phone Kecia Goodwin Primary Care Provider [phone] Mari English NP Primary Care Provider [phone] Encounter Details Date Type Department Care Team (Late st Contact Info) Description 01/20/2022 Minimally invasive devices Message Enc [facility] Medical Group Family & Internal Medicine [facility] [address] [place] [address] Kecia Goodwin APNP [address] [address] Question regarding CBC W/DIFF AUTOMATED [...] documented as of this encounter Care Teams Outreach Manager Relationship Specialty Start Date End Date Kecia Goodwin APNP [address] [address] PCP - General Nurse Practitioner Family 04/22/1903/06 [place] [address] [address] [address]. [place], [place] [phone] PCP - General Nurse Practitioner Family 03/21/23 documented as of this encounter
--- OUTSIDE RECORDS SUMMARY | 2025-05-19 15:28 | XMS_ITS | Encounter Summary ---
Author Organization [facility] Address [facility] [place] [address] Care Team Providers Care Flask Cleaner Name Role Phone Kecia GoodwinNP Primary Care Provider [phone] Mari English NP Primary Care Provider + [phone] Encounter Details Date Type Department Care Team (Late st Contact Info) Description 06/01/2022 Med ePad Message [employer] [facility] Medical Group Family & Internal Medicine [facility] [address] [place] [address] [employer], [facility] Provider Bllod pressure Social History Tobacco Use [...] documented as of this encounter Care Teams Flask Cleaner Relationship Specialty Start Date End Date Kecia Goodwin APNP [address] [phone] PCP - General Nurse Practitioner Family 04/22/1903/06 [place] [address] [facility] Suite [facility]. [place], [place] [phone] PCP - General Nurse Practitioner Family 03/21/23 documented as of this encounter
--- OUTSIDE RECORDS SUMMARY | 2025-05-19 15:29 | XMS_ITS | Encounter Summary ---
Author Organization [facility] Address [facility] [place] [address] Care Team Providers Care Rotary Operator Name Role Phone Kecia GoodwinNP Primary Care Provider [phone] Mari English NP Primary Care Provider + [phone] Encounter Details Date Type Department Care Team (Late st Contact Info) Description 03/23/2020 Magine Message Enc [facility] Medical Group Family & Internal Medicine [address] [address] [employer], [facility] Provider Appointment Social History Tobacco Use Types [...] on filedocumented in this encounter Care Teams Rotary Operator Relationship Specialty Start Date End Date Kecia Goodwin APNP [address] [address] PCP - General Nurse Practitioner Family 04/22/1903/06 [place] [address] [facility] [address] [place] [address] PCP - General Nurse Practitioner Family 03/21/23 documented as of this encounter
--- OUTSIDE RECORDS SUMMARY | 2025-05-19 15:29 | XMS_ITS | Encounter Summary ---
Author Organization [facility] Address [facility] [place] [address] Care Team Providers Care Cokeman Name Role Phone Kecia Goodwin Primary Care Provider [phone] Mari English NP Primary Care Provider + [phone] Encounter Details Date Type Department Care Team (Late st Contact Info) Description 07/28/2020 [employer] Message Enc [facility] Medical Group Family & Internal Medicine [address] [address] Charlee, [facility] Provider Omeprazole Social History Tobacco Use Types [...] on filedocumented in this encounter Care Teams Cokeman Relationship Specialty Start Date End Date Kecia Goodwin APNP [address] [address] PCP - General Nurse Practitioner Family [birth year]/22/1903/06 [place] [address] [address] [address]. [place] [address] PCP - General Nurse Practitioner Family 03/21/23 documented as of this encounter
== END 2025-05-19 15:40 | disposition home or self-care (01) ==
LOC: ANHED 15:25
PROVIDERS: Emergency Provider Emergency Medicine; PCP Physician Assistant
DX: N61.0 Mastitis without abscess (principal); K21.9 Gastro-esophageal reflux disease without esophagitis; F43.10 Post-traumatic stress disorder, unspecified; F17.210 Nicotine dependence, cigarettes, uncomplicated; F17.290 Nicotine dependence, other tobacco product, uncomplicated; Z90.49 Acquired absence of other specified parts of digestive tract; Z79.899 Other long term (current) drug therapy
CPT/HCPCS: 99283; A9270

== ENCOUNTER 2025-10-01 14:42 | Emergency (ER) | payer SELFPAY ==
--- NOTE | ~2025-10-01 | XR_ITS ---
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 Findings: No acute fracture or malalignment. No significant degenerative changes. Soft tissues unremarkable. Impression: No acute fracture or malalignment. Reviewed, dictated and finalized at location P. ATIONS ANALYST Impression: No acute fracture or malalignment.
[2025-10-01 14:44] VITALS: PULSE 99; RESP 17; TEMP 36.6; O2SAT 99
--- OUTSIDE RECORDS SUMMARY | 2025-10-01 14:45 | XMS_ITS | Encounter Summary ---
Author Organization [facility] Address [facility] [place] [address] Care Team Providers Care Criminology Professor Name Role Phone Kecia GoodwinNP Primary Care Provider [phone] Mari English NP Primary Care Provider + [phone] Encounter Details Date Type Department Care Team (Late st Contact Info) Description 01/21/2022 [employer] Message [employer] [facility] Medical Group Family & Internal Medicine [address] [address] [employer], [facility] Provider Results Social History Tobacco Use Types [...] documented as of this encounter Care Teams Criminology Professor Relationship Specialty Start Date End Date Kecia Goodwin APNP [address] [phone] PCP - General Nurse Practitioner Family [birth year]/22/1903/06 [place] [address] [facility] [address] [place] [address] PCP - General Nurse Practitioner Family 03/21/23 documented as of this encounter
--- OUTSIDE RECORDS SUMMARY | 2025-10-01 14:45 | XMS_ITS | Clinical Summary ---
Author Organization [facility] Address [address] [place] [address] Care Team Providers Care Cloud Security Architect Name Role Phone Mari English NP Primary Care Provider + [phone] Allergies No known active allergies Medications Eluxadoline [...] Diagnosed Date Mild intermittent asthma without complication Vitamin D deficiency 03/23/2023 Chronic diarrhea 03/23/2023 [...] Diagnosed Date Resolved Date [facility] 04/22/2019 07/17/2020 Immunizations [...] Counseling Given: Yes Comments:Wants to quit. Please genetic counselor. Alcohol Use Standard Drinks/Week Comments Yes [...] Years) (1 of 2 - PCV) 2005 HPV Vaccines (1 - 3-dose SCD M series) 2013 Annual Physical 10/07/2021 10/07/2020 DTaP, Tdap and Td Vaccines ( 2 - Td or Tdap) 12/02/2023 12/02/2013 PHQ-2 (Physician [place]) 11/06/2024 COVID-19 Vaccine ( - 2024-2 6 season) 2025 Influenza Adult (#1) 2025 08/18/2020 Hepatitis C 06/03/2052 Postponed from 2004 (Patient Refused) Hepatitis A Vaccines Aged Out No long er eligible based on patient's age to complete this topic Meningococcal B Vaccine Aged Out No l onger eligible based on patient's age to complete this topic Meningococcal Vaccine Aged Out No jose mingo eligible based on patient's age to complete this topic RSV Immunizations Under 20 Months Aged Out No longer eligible based on patient's age to complete this topic Insurance [facility] Care Teams Cloud Security Architect Relationship Specialty [place] [address] [address] PCP - General Nurse Practitioner Family 03/21/23
--- OUTSIDE RECORDS SUMMARY | 2025-10-01 14:45 | XMS_ITS | Encounter Summary ---
Author Organization [facility] Address [facility] [place] [address] Care Team Providers Care Port Crane Operator Name Role Phone Kecia GoodwinNP Primary Care Provider +[phone] Mari English NP Primary Care Provider + [phone] Encounter Details Date Type Department Care Team (Late st Contact Info) Description 06/14/2022 [place] Message Enc [facility] Medical Group Family & Internal Medicine [address] [address] [email or web address], [facility] Provider Losartan medication Social History Tobacco Use [...] documented as of this encounter Care Teams Port Crane Operator Relationship Specialty Start Date End Date Keica Goodwin APNP [address] [phone] PCP - General Nurse Practitioner Family 04/22/1903/06 [place] [address] [facility] Suite [facility] [place] [address] PCP - General Nurse Practitioner Family 03/21/23 documented as of this encounter
--- OUTSIDE RECORDS SUMMARY | 2025-10-01 14:45 | XMS_ITS | Encounter Summary ---
Author Organization [facility] Address [facility] [place] [address] Care Team Providers Care Operations Systems Specialist Name Role Phone Kecia GoodwinNP Primary Care Provider [phone] Mari English NP Primary Care Provider + [phone] Encounter Details Date Type Department Care Team (Late st Contact Info) Description 06/01/2022 [employer] Message [employer] [facility] Medical Group Family & Internal Medicine [facility] [id number] [place] [phone] [employer], [facility] Provider Bllod pressure Social History Tobacco Use [...] documented as of this encounter Care Teams Operations Systems Specialist Relationship Specialty Start Date End Date Kecia Goodwin APNP [address] [phone] PCP - General Nurse Practitioner Family 04/22/1902/06 [place] [address] [facility] [address] [facility]. [place], [place] [id number] PCP - General Nurse Practitioner Family 03/21/23 documented as of this encounter
--- OUTSIDE RECORDS SUMMARY | 2025-10-01 14:45 | XMS_ITS | Encounter Summary ---
Author Organization [facility] Address [facility] [place] [address] Care Team Providers Care Rn Advanced Name Role Phone Kecia Goodwin Primary Care Provider [phone] Mari English NP Primary Care Provider + [phone] Encounter Details Date Type Department Care Team (Late st Contact Info) Description 07/28/2020 [employer] Message Enc [facility] Medical Group Family & Internal Medicine [address] [address] Charlee, [facility] Provider Omeprazole Social History Tobacco Use Types [...] on filedocumented in this encounter Care Teams Rn Advanced Relationship Specialty Start Date End Date Kecia Goodwin APNP [address] [address] PCP - General Nurse Practitioner Family 04/22/1902/06 [place] [address] [address] [address]. [place] [address] PCP - General Nurse Practitioner Family 03/21/23 documented as of this encounter
--- OUTSIDE RECORDS SUMMARY | 2025-10-01 14:45 | XMS_ITS | Encounter Summary ---
Author Organization [facility] - [facility] Address [address] [place] [address] Care Team Providers Care Oral Hygienist Name Role Phone Mari English NP Primary Care Provider + [phone] Encounter Details Date Type Department Care Team (Late st Contact Info) Description 05/03/2023 [employer] Message Enc [facility] Medical Group - [facility] [address] [place], [place] [address] Charlee, [facility] Provider Air Quality Message Social History Tobacco Use Types Packs/Day Years Used Date Smoking Tobacco: Every Day Cigarettes 1.5 22 Smokeless Tobacco: Former Chew Comments:Wants to quit. 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 Alcohol Use Standard Drinks/Week Comments Yes [...] documented as of this encounter Care Teams Oral Hygienist Relationship Specialty [place] [address] [phone] PCP - General Nurse Practitioner Family 03/21/23 documented as of this encounter
--- OUTSIDE RECORDS SUMMARY | 2025-10-01 14:45 | XMS_ITS | Encounter Summary ---
Author Organization [facility] Address [facility] [place] [address] Care Team Providers Care Cook Cold Meat Name Role Phone Kecia GoodwinNP Primary Care Provider [phone] Mari English NP Primary Care Provider + [phone] Encounter Details Date Type Department Care Team (Late st Contact Info) Description 03/23/2020 [employer] vascular solution Message Enc [facility] Medical Group Family & Internal Medicine [address] [address] I-MD, [facility] Provider Appointment Social History Tobacco Use Types [...] on filedocumented in this encounter Care Teams Cook Cold Meat Relationship Specialty Start Date End Date Kecia Goodwin APNP [address] [address] PCP - General Nurse Practitioner Family 04/22/1902/06 [place] [address] [facility] [address] [place] [address] PCP - General Nurse Practitioner Family 03/21/23 documented as of this encounter
--- OUTSIDE RECORDS SUMMARY | 2025-10-01 14:45 | XMS_ITS | Encounter Summary ---
Author Organization [facility] Address [facility] [place] [address] Care Team Providers Care Document Advisor Name Role Phone Kecia GoodwinNP Primary Care Provider [phone] Mari English NP Primary Care Provider + [phone] Encounter Details Date Type Department Care Team (Late st Contact Info) Description 06/07/2022 [employer] Message [employer] [facility] Medical Group Family & Internal Medicine [address] [address] [email or web address], [facility] Provider Lab results Social History Tobacco Use [...] documented as of this encounter Care Teams Document Advisor Relationship Specialty Start Date End Date Kecia Goodwin APNP [address] [phone] PCP - General Nurse Practitioner Family 04/22/1902/06 [place] [address] [facility] [address] [facility] [place] [address] PCP - General Nurse Practitioner Family 03/21/23 documented as of this encounter
--- OUTSIDE RECORDS SUMMARY | 2025-10-01 14:45 | XMS_ITS | Encounter Summary ---
Author Organization [facility] Address [facility] [place] [address] Care Team Providers Care Auger Operator Name Role Phone Kecia Goodwin Primary Care Provider [phone] Mari English NP Primary Care Provider [phone] Encounter Details Date Type Department Care Team (Late st Contact Info) Description 01/20/[address] [facility] Medical Group Family & Internal Medicine [facility] [address] [place] [address] Kecia Goodwin APNP [address] [address] Question regarding CBC W/DIFF AUTOMATED [...] documented as of this encounter Care Teams Auger Operator Relationship Specialty Start Date End Date Kecia Goodwin APNP [address] [address] PCP - General Nurse Practitioner Family [birth year]03/06 [place] [address] [address] [address]. [place], [place] [phone] PCP - General Nurse Practitioner Family 03/21/23 documented as of this encounter
[2025-10-01 15:29] VITALS: BP 161/91; PULSE 78; RESP 16; O2SAT 97
--- NOTE | 2025-10-01 15:29 | ED.UPPEXIN ---
HPI - Extremity Injury (Upper) General Chief Complaint: Extremity Injury, Upper Stated Complaint: left shoulder injury Time Seen by Provider: 10/01/25 14:49 History of Present Illness HPI narrative: About 2 and half weeks ago, while at work, patient hold about 80 lb of tile over his left shoulder, felt a pop, and since then has had pain to his left shoulder especially with movement. When he leans on his left arm for long periods of time he will start having some tingling. Related Data Home Medications ?Medication ?Instructions ?Recorded ?Confirmed ?Last Taken ?Type albuterol sulfate 90 mcg/actuation 1 puff inhalation Q4H PRN 04/12/23 04/20/23 04/27/23 History aerosol inhaler Shortness Of Breath fluticasone propionate 44 1 inh inhalation ONCE 04/12/23 04/20/23 04/27/23 History mcg/actuation HFA aerosol inhaler losartan 100 mg tablet 100 mg PO DAILY 04/12/23 04/20/23 04/27/23 History omeprazole 40 mg capsule,delayed 40 mg PO DAILY 04/12/23 04/20/23 04/27/23 History release Allergies Allergy/AdvReac Type Severity Reaction Status Date / Time No Known Allergies Allergy Verified 05/22/25 10:49 Review of Systems Review of Systems: All systems reviewed & are unremarkable except as noted in HPI and below PMFSH Past Medical History Medical History Abdominal pain Chronic diarrhea Decreased appetite Early satiety GERD (gastroesophageal reflux disease) Increased mucus in stool Melena Nausea & vomiting Obesity Odynophagia PTSD (post-traumatic stress disorder) Tobacco use Wheezing on both sides of chest Surgical History Surgical History History of cholecystectomy Family History Family History Father Hypertension Mother Hypertension Social History Social History (Updated 05/22/25 @ 10:57 by Jhoana Sims [facility]) Smoking packs per day: 1 Smoking cigarettes per day: 20.0 Years smoked: 21 Smoking pack-years: 21.00 Smoking status: Current every day smoker Tobacco type: cigarettes and e-cigarettes/vaping Alcohol intake: never Substance use: never Substance use type: does not use Lack of Transportation: No Lack of Food: Never True Current Housing: I Have Housing Concerned About Future Housing: No Difficulty Paying Gas/Electric Bills: No Difficulty Paying for Meds: No Currently Unemployed: No Education: High School Diploma/GED Difficulty w/ Childcare or Family Care: No Living arrangements: with family Occupation/Education: occupation Gender identity (if verbalized by the patient): Male Spiritual care concerns: No Exam Narrative: EXAMINATION OF ORGAN SYSTEMS/BODY AREAS: Constitutional: Vital signs per nursing GENERAL:[No acute distress, non-toxic appearing.] HEAD: Normal with no signs of head trauma. EYES: EOMI, conjunctiva normal ENT: Hearing grossly intact LUNGS: Nonlabored breathing. HEART: [Regular rate and rhythm], normal radial pulses ABD: [Soft], [nontender to palpation] EXT: Normal range of motion some tenderness in left shoulder, with positive Warren sign SKIN: [No rashes or lesions.] NEURO: [Alert and oriented x 3. No gross focal sensory or strength deficits.] PSYCH: Normal affect Course Vital Signs Vital signs: Vital Signs Temperature 97.9 F 10/01/25 14:44 Pulse Rate 99 10/01/25 14:44 Respiratory Rate 17 10/01/25 14:44 Pulse Oximetry 99 10/01/25 14:44 Oxygen Delivery Room Air 10/01/25 14:44 Temperature 97.9 F 10/01/25 14:44 Pulse Rate 99 10/01/25 14:44 Respiratory Rate 17 10/01/25 14:44 Pulse Oximetry 99 10/01/25 14:44 Oxygen Delivery Room Air 10/01/25 14:44 MDM - Extremity Injury (Upper) MDM Narrative Medical decision making narrative: Patient presents here after he injured his left shoulder about 2 and half weeks ago, he has tried ibuprofen and Tylenol at home however the pain is still severe, occasionally when he puts too much weight on it for long period of time, he can get some tingling. On exam, he is neurovascularly intact, normal range of motion, no obvious deformity, however pain is reproduced with certain movements, positive Warren here. I suspect possible rotator cuff tear, or other soft tissue injury, shoulder x-ray obtained here was unremarkable with no acute osseous abnormality. Discussed with patient, will him follow up to Orthopedics, will trial a course of steroids, NSAIDs, muscle relaxants, with return precautions and follow-up instructions. He does not need a work note and his work is already aware. Discharge Plan Discharge Clinical Impression: Injury of shoulder Patient Disposition: Home Condition: Stable Instructions: Shoulder Sprain (ED) Additional Instructions: Please follow up with orthopedics; no heavy lifting with your left arm until it heals. Try the meds as prescribed and you can always return to the ER for worsening symptoms Patient Language: Malian Prescriptions: New prednisone 20 mg tablet 40 mg PO DAILY 5 Days Qty: 10 0RF methocarbamol 750 mg tablet 750 mg PO TID PRN (Reason: muscle spasm) Qty: 30 0RF No Action omeprazole 40 mg capsule,delayed release(DR/EC) 40 mg PO DAILY albuterol sulfate 90 mcg/actuation HFA aerosol inhaler 1 puff inhalation Q4H PRN (Reason: Shortness Of Breath) fluticasone propionate 44 mcg/actuation HFA aerosol inhaler 1 inh inhalation ONCE Rx Instructions: administer with spacer losartan 100 mg tablet 100 mg PO DAILY sulfamethoxazole-trimethoprim [Bactrim DS] 800-160 mg tablet 1 tablet PO Q12H Qty: 14 0RF Follow-up/Referrals: PHYSICIAN,VINYL CUTTER [Primary Care Provider, Internal Medicine] David Huynh MD [Physician, Orthopedics] - 2 Days
== END 2025-10-01 15:30 | disposition home or self-care (01) ==
PROVIDERS: Emergency Provider Emergency Medicine
DX: S49.92XA Unspecified injury of left shoulder and upper arm, initial encounter (principal); K21.9 Gastro-esophageal reflux disease without esophagitis; F17.210 Nicotine dependence, cigarettes, uncomplicated; F17.290 Nicotine dependence, other tobacco product, uncomplicated; Z90.49 Acquired absence of other specified parts of digestive tract; X50.0XXA Overexertion from strenuous movement or load, initial encounter
CPT/HCPCS: 73030; 99283